=== PATIENT | male | born 1955 | race Caucasian/White ===

== ENCOUNTER 2016-12-17 14:55 | Emergency (ER) | payer MEDICARE ==
--- NOTE | 2016-12-17 15:20 | ER Document Report ---
ED Medical Screen (RME) - General Stated Complaint: LEFT RIB PAIN Mode of Arrival: Wheelchair Information source: Patient Notes: Patient presents to the emergency department as complaints of left-sided rib pain. Reports dizziness for 4 days. Reports yesterday he fell and hit his left ribs. Reports blacked out briefly. History of COPD is on home O2. I have greeted and performed a rapid initial assessment of this patient. A comprehensive ED assessment and evaluation of the patient, analysis of test results and completion of the medical decision making process will be conducted by additional ED providers. - Related Data Allergies/Adverse Reactions: No Known Allergies Allergy (Unverified 12/17/16 15:18) Physical Exam - Vital signs Vitals: Temp Pulse Resp BP Pulse Ox 98.2 F 140 H 20 111/74 91 L 12/17/16 15:13 12/17/16 15:13 12/17/16 15:13 12/17/16 15:13 12/17/16 15:13 Course - Vital Signs Vital signs: Temp Pulse Resp BP Pulse Ox 98.2 F 140 H 20 111/74 91 L 12/17/16 15:13 12/17/16 15:13 12/17/16 15:13 12/17/16 15:13 12/17/16 15:13
[2016-12-17] MEDS ORDERED: MAGNESIUM SULFATE/D5W 1 GM/100 ML RTUPB IV ONE (15:41)
[2016-12-17] MEDS ORDERED: MORPHINE SULFATE 10 MG/ML INJ ONE (15:45)
[2016-12-17] MEDS ORDERED: ONDANSETRON HCL INJ/PF 4 MG/2 ML SDV ONE (15:45)
[2016-12-17 15:55] LABS: ABSOLUTE BASOPHILS # (AUTO) 0.1 10^3/uL (0.0-0.2); ABSOLUTE LYMPHOCYTES (AUTO) 0.9 10^3/uL (0.5-4.7); ABSOLUTE MONOCYTES (AUTO) 0.8 10^3/uL (0.1-1.4); ABSOLUTE NEUT (AUTO) 11.7 10^3/uL (1.7-8.2); BASOPHILS % (AUTO) 0.6 % (0-2); EOSINOPHILS % (AUTO) 0.1 % (0-6); HEMATOCRIT 38.2 % (37.9-51.0); HEMOGLOBIN 13.4 g/dL (13.5-17.0); LYMPHOCYTES % (AUTO) 6.4 % (13-45); MEAN CORPUSCULAR HEMOGLOBIN 30.7 pg (27.0-33.4); MEAN CORPUSCULAR HGB CONC 35.1 g/dL (32.0-36.0); MEAN CORPUSCULAR VOLUME 87 fl (80-97); MONOCYTES % (AUTO) 5.7 % (3-13); RED BLOOD COUNT 4.37 10^6/uL (4.35-5.55); RED CELL DISTRIBUTION WIDTH 14.8 % (11.5-14.0); SEGMENTED NEUTROPHILS % (AUTO) 87.2 % (42-78); WHITE BLOOD COUNT 13.4 10^3/uL (4.0-10.5)
[2016-12-17] MEDS ORDERED: MORPHINE SULFATE 10 MG/ML INJ IV ONE (15:56)
[2016-12-17] MEDS ORDERED: ONDANSETRON HCL INJ/PF 4 MG/2 ML SDV IV ONE (15:56)
[2016-12-17] MEDS ORDERED: NORMAL SALINE 1000 ML 1,000 ML IV PRN ×2 (15:57→17:49)
[2016-12-17] MEDS ORDERED: MAGNESIUM SULFATE/D5W 100 ML IV ONE ×2 (15:57→17:45)
--- NOTE | 2016-12-17 16:00 | ER Document Report ---
ED General - General Chief Complaint: Rib Pain Stated Complaint: LEFT RIB PAIN Time seen by provider: 15:57 Mode of Arrival: Wheelchair Information source: Patient Notes: This is a 61-year-old man who recently moved from [place]. He reports a history of COPD (3 L oxygen at home), bipolar affective disorder and a remote history of lung cancer (right lobectomy in the ) and lymphoma (status post chemotherapy 15 years ago). The patient states she's been dizzy for 4 days. He states he did pass out 2 days ago and he fell and hit his head and left ribs. He presents today because of left rib pain. He denies any shortness of breath. He denies any exertional discomfort. The patient states that his pain is precipitated by movement of the upper torso. TRAVEL OUTSIDE OF THE [place] IN LAST 30 DAYS: No - HPI Onset: Last week Onset/Duration: Gradual Quality of pain: Dull Severity: Moderate Pain Level: 2 Associated symptoms: Other - Chest wall pain. denies: Chills, Fever, Shortness of breath Exacerbated by: Denies Relieved by: Denies Similar symptoms previously: Yes Recently seen / treated by doctor: No - Related Data Allergies/Adverse Reactions: No Known Allergies Allergy (Unverified 12/17/16 15:18) Past Medical History - General Information source: Patient - Social History Smoking Status: Current Every Day Smoker Cigarette use (# per day): No Chew tobacco use (# tins/day): No Frequency of alcohol use: Heavy Drug Abuse: None Lives with: Friend Family History: Reviewed & Not Pertinent Patient has suicidal ideation: No Patient has homicidal ideation: No - Past Medical History Cardiac Medical History: Reports: None Pulmonary Medical History: Reports: Hx COPD Neurological Medical History: Reports: None Endocrine Medical History: Reports: None Renal/ Medical History: Reports: None. Denies: Hx Peritoneal Dialysis Malignancy Medical History: Reports None GI Medical History: Reports: None Musculoskeltal Medical History: Reports None Skin Medical History: Reports None Psychiatric Medical History: Reports: Hx Bipolar Disorder Traumatic Medical History: Reports: None Infectious Medical History: Reports: None Surgical Hx: Negative - Immunizations Hx Diphtheria, Pertussis, Tetanus Vaccination: No Review of Systems - Review of Systems Constitutional: denies: Chills, Fever EENT: No symptoms reported Cardiovascular: Lightheaded. denies: Chest pain, Palpitations, Heart racing, Orthopnea Respiratory: denies: Cough, Hemoptysis, Short of breath Gastrointestinal: No symptoms reported Genitourinary: No symptoms reported Male Genitourinary: No symptoms reported Musculoskeletal: See HPI Skin: No symptoms reported Hematologic/Lymphatic: No symptoms reported Neurological/Psychological: No symptoms reported Physical Exam - Vital signs Vitals: Temp Pulse Resp BP Pulse Ox 98.2 F 140 H 20 111/74 91 L 12/17/16 15:13 12/17/16 15:13 12/17/16 15:13 12/17/16 15:13 12/17/16 15:13 Notes: Physical exam: GENERAL: 61-year-old man, thin, alert and oriented 3, no acute distress. The patient appears relatively well. HEAD: Normocephalic. Contusion over the left eyebrow. EYES: Pupils equal round and reactive to light, extraocular movements intact, sclera anicteric, conjunctiva are normal. ENT: TMs normal, nares patent, oropharynx clear without exudates. Moist mucous membranes. NECK: Normal range of motion, supple without lymphadenopathy or JVD. LUNGS: Breath sounds clear to auscultation bilaterally and equal. No wheezes rales or rhonchi. HEART: Tachycardic without murmurs, rubs or gallops. Chest wall: Left lateral rib tenderness midaxillary line at the level of the nipple. No crepitus. ABDOMEN: Soft, normoactive bowel sounds. No tenderness to palpation. No guarding, no rebound. No masses appreciated. EXTREMITIES: Normal range of motion, no pitting or edema. No clubbing or cyanosis. He does have ecchymoses over the left elbow. There is mild tenderness with range of motion. NEUROLOGICAL: Cranial nerves II through XII grossly intact. Normal speech, normal gait. PSYCH: Normal mood, normal affect. SKIN: Ecchymoses over the left elbow as noted above. He does have small contusion over the left eyebrow. Course - Re-evaluation Re-evalutation: 12/17/16 19:59 The patient's issues were as follows: Left rib pain after fall last week: On exam he has some left chest wall tenderness to palpation. Chest x-ray revealed old rib fracture on the right. There is no new rib fractures. He has a rib contusion secondary to fall. Tachycardia: Patient states he has had an irregular heart rate in the past. Initial EKG showed atrial fibrillation. The patient was found to be hypomagnesemic and got IV magnesium IV fluids. He was given some IV Ativan while in the ER. On repeat examination, the patient was in sinus tachycardia on telemetry at the bedside. Thyroid studies were tested and found to be normal. CTA of the chest was performed to rule out pulmonary emboli (no pulmonary emboli were seen). I think the patient's tachycardia in the setting of electrolyte depletion is precipitated by his alcohol abuse. I've had a long discussion with him with friends at the bedside. The patient would like to go home. I've advised him to follow-up with his primary care doctor and I've given him a copy of his test results as well as CT report. I've advised him to return to the emergency room for any chest pain, concerns it is getting worse. COPD: Patient has a history of COPD. He smokes approximately one half pack per day and is down from 2 packs a day. Currently, he denies any shortness of breath and his lung sounds are clear. Hypomagnesemia: [employer] secondary to alcohol abuse. Patient was given IV magnesium in the ER. Hyponatremia: Patient states he does have a history of hyponatremia. He was treated with IV fluids for some volume depletion. Alcohol abuse: I prescribed the patient some Ativan for withdrawal. I've given him the home number for [facility] and I would like him to follow-up with them this week. 12/17/16 23:37 - Vital Signs Vital signs: Temp Pulse Resp BP Pulse Ox 98.2 F 140 H 23 H 141/98 H 95 12/17/16 15:13 12/17/16 15:13 12/17/16 20:40 12/17/16 20:40 12/17/16 20:40 - Laboratory Result Diagrams: 12/17/16 15:37 12/17/16 15:37 Laboratory results interpreted by me: 12/17/16 12/17/16 12/17/16 15:37 15:37 15:37 WBC 13.4 H Hgb 13.4 L RDW 14.8 H Seg Neutrophils % 87.2 H Lymphocytes % 6.4 L Absolute Neutrophils 11.7 H Sodium 129.7 L Chloride 84 L Carbon Dioxide 32 H Glucose 124 H Magnesium 1.3 L Total Bilirubin 2.7 H Direct Bilirubin 1.5 H AST 192 H Alkaline Phosphatase 262 H Albumin 3.2 L - Diagnostic Test Radiology reviewed: Image reviewed, Reports reviewed Discharge - Discharge Clinical Impression: rib contusion status post fall, tachycardia, hypomagnesemia, alcohol abuse Condition: Stable Disposition: HOME, SELF-CARE Instructions: Rib Contusion ([facility]) Additional Instructions: Recommendations: Ultimately, your fast heartbeat is felt to be due to the alcohol. I want you to seek a detox program: I left the number for [facility] below which is open tomorrow and they could see you as a walk-in. I would like you to go to [facility] tomorrow. In the meantime, I prescribed Ativan which he can take 1 mg every 6-8 hours if you're feeling any symptoms of withdrawal (fast heartbeat, jittery, sweaty): I would not take this medicine if you feel too sleepy. As far as the chest wall tenderness: The CT scans did not show any evidence of fracture. Your symptoms are consistent with contusion to the ribs from the fall. I would not take anything stronger than ibuprofen at this time ( narcotics would interact with the Ativan and your other psychiatric medicines). I want should also follow-up with your primary care physician: Bring a copy of today's CT results and labs with you. Return to the emergency room for worsening pain, any shortness of breath or any concerns he getting worse. [facility] [address] [facility] [place] Crisis Response: [phone] Outpatient services: [phone] Prescriptions: Lorazepam [Ativan 1 mg Tablet] 1 mg PO Q4 PRN #20 tab PRN Reason: Thiamine HCl [Thiamine 100 mg Tablet] 100 mg PO DAILY #30 tablet
[2016-12-17 16:11] LABS: ALANINE AMINOTRANSFERASE 53 U/L (21-72); ALBUMIN 3.2 g/dL (3.5-5.0); ALKALINE PHOSPHATASE 262 U/L (38-126); ANION GAP 14 (5-19); ASPARTATE AMINO TRANSFERASE 192 U/L (17-59); BILIRUBIN,DIRECT 1.5 mg/dL (0.0-0.4); BILIRUBIN,TOTAL 2.7 mg/dL (0.2-1.3); BLOOD UREA NITROGEN 15 mg/dL (7-20); CALCIUM 8.6 mg/dL (8.4-10.2); CARBON DIOXIDE 32 mmol/L (22-30); CHLORIDE 84 mmol/L (98-107); CREATININE RESULT 0.71 mg/dL (0.52-1.25); GLUCOSE 124 mg/dL (75-110); POTASSIUM 3.6 mmol/L (3.6-5.0); SODIUM 129.7 mmol/L (137-145); TOTAL PROTEIN 6.7 g/dL (6.3-8.2)
[2016-12-17 17:20] LABS: THYROID STIMULATING HORMONE 2.6 uIU/mL (0.47-4.68)
[2016-12-17] MEDS ORDERED: LORAZEPAM INJ 2 MG/1 ML VIAL IV ONE (17:51)
--- NOTE | 2016-12-17 20:04 | EKG REPORT ---
SEVERITY:- ABNORMAL ECG - A-FLUTTER W/ PREDOM 2:1 AV BLOCK, A-RATE 283 RIGHT BUNDLE BRANCH BLOCK PROBABLE INFERIOR INFARCT, AGE INDETERMINATE : Confirmed by: Kaleb Jaramillo MD 17-Dec-2016 20:04:03
--- NOTE | 2016-12-17 20:04 | EKG REPORT ---
SEVERITY:- ABNORMAL ECG - A FLUTTER RIGHT BUNDLE BRANCH BLOCK CONSIDER OLD INFERIOR IN : Confirmed by: Kaleb Jaramillo MD 17-Dec-2016 20:03:55
[2016-12-17 21:51] VITALS: BP 141/98
== END 2016-12-17 20:50 | disposition home or self-care (01) ==
LOC: ER 14:55
DX: S20.20XA Contusion of thorax, unspecified, initial encounter (principal); S00.12XA Contusion of left eyelid and periocular area, initial encounter; S50.02XA Contusion of left elbow, initial encounter; R07.81 Pleurodynia; W19.XXXA Unspecified fall, initial encounter; F10.10 Alcohol abuse, uncomplicated; E83.42 Hypomagnesemia; E87.1 Hypo-osmolality and hyponatremia; R00.0 Tachycardia, unspecified; R55 Syncope and collapse; J44.9 Chronic obstructive pulmonary disease, unspecified; F17.200 Nicotine dependence, unspecified, uncomplicated; Z99.81 Dependence on supplemental oxygen; Z85.118 Personal history of other malignant neoplasm of bronchus and lung; Z90.2 Acquired absence of lung [part of]; Z85.72 Personal history of non-Hodgkin lymphomas; Z92.21 Personal history of antineoplastic chemotherapy; Z87.81 Personal history of (healed) traumatic fracture
CPT/HCPCS: 93005 ×2; 99284; 36415; 84439; 83735; 84443; 85025; 80053; 71010; 73070; 70450; 71275; 93010; J2060; J3475

== ENCOUNTER 2016-12-18 15:28 | Inpatient (IN) | payer MEDICARE ==
--- NOTE | 2016-12-18 16:07 | ER Document Report ---
ED Medical Screen (RME) - General Chief Complaint: Pedal Edema Stated Complaint: FEET SWELLING,FAST HEART RATE Mode of Arrival: Ambulatory Information source: Patient Notes: Patient presents to the emergency department with rapid heart rate and feet swelling. Patient was evaluated yesterday in the emergency department with left -sided rib pain. Denies other symptoms such as fever vomiting diarrhea. Patient has history of emphysema. Has home O2 4 L nasal cannula. I have greeted and performed a rapid initial assessment of this patient. A comprehensive ED assessment and evaluation of the patient, analysis of test results and completion of the medical decision making process will be conducted by additional ED providers. TRAVEL OUTSIDE OF THE [place] IN LAST 30 DAYS: No - Related Data Allergies/Adverse Reactions: No Known Allergies Allergy (Unverified 12/17/16 15:18) Past Medical History Pulmonary Medical History: Reports: Hx COPD Renal/ Medical History: Denies: Hx Peritoneal Dialysis Psychiatric Medical History: Reports: Hx Bipolar Disorder - Immunizations Hx Diphtheria, Pertussis, Tetanus Vaccination: No Physical Exam - Vital signs Vitals: Temp Pulse Resp BP Pulse Ox 97.9 F 137 H 20 150/81 H 92 12/18/16 15:30 12/18/16 15:30 12/18/16 15:30 12/18/16 15:30 12/18/16 15:30 Course - Vital Signs Vital signs: Temp Pulse Resp BP Pulse Ox 97.9 F 137 H 20 150/81 H 92 12/18/16 15:30 12/18/16 15:30 12/18/16 15:30 12/18/16 15:30 12/18/16 15:30
[2016-12-18] MEDS ORDERED: DILTIAZEM HCL INJ 25 MG/5 ML VIAL IV ONE ×3 (19:00→21:56)
--- NOTE | 2016-12-18 19:00 | ER Document Report ---
ED General - General Time seen by provider: 18:55 Mode of Arrival: Ambulatory Information source: Patient TRAVEL OUTSIDE OF THE [place] IN LAST 30 DAYS: No - HPI Onset: Other - see HPI note Associated symptoms: Leg swelling Similar symptoms previously: Yes Recently seen / treated by doctor: Yes - ED yesterday, PCP today <FRANCO CASAREZ - Last Filed: 12/18/16 19:13> <MICAH CAI - Last Filed: 12/18/16 22:00> - General Chief Complaint: Feet swelling, Fast heartrate Stated Complaint: FEET SWELLING,FAST HEART RATE Notes: Patient is a 61 year old male presenting to the ED for leg swelling and tachycardia. Patient was seen in the ED last night and told to return 12/19/16 in the morning for a recheck of his symptoms. Patient states he saw his PCP today at [facility] in [place] and was told to go to the ED. Patient has had some dizziness and lightheadedness a three days ago he fell and hit his ribs on the bathtub. Patient still has pain in his ribs and states it hurts to take a deep breath and when he coughs. Patient states his heart has been racing for about 5 days now. Patient smokes, drinks EtOH, and has hypertension and bipolar disorder. Patient has no known allergies. (FRANCO CASAREZ) - Related Data Allergies/Adverse Reactions: No Known Allergies Allergy (Unverified 12/17/16 15:18) Past Medical History - General Information source: Patient - Social History Smoking Status: Current Every Day Smoker Cigarette use (# per day): Yes - 1/2 ppd Chew tobacco use (# tins/day): No Frequency of alcohol use: 2 beers per day Drug Abuse: None Family History: None - Past Medical History Cardiac Medical History: Reports: Hx Hypertension Pulmonary Medical History: Reports: Hx COPD Malignancy Medical History: Reports Hx Lung Cancer, Reports Hx Lymphoma Psychiatric Medical History: Reports: Hx Bipolar Disorder Past Surgical History: Reports: Hx Orthopedic Surgery - arthroscopic knee surgery right and left, Other - partial right lung removal-lung cancer - Immunizations Hx Diphtheria, Pertussis, Tetanus Vaccination: No <FRANCO CASAREZ - Last Filed: 12/18/16 19:13> Review of Systems - Review of Systems Constitutional: No symptoms reported EENT: No symptoms reported Cardiovascular: See HPI, Heart racing Respiratory: No symptoms reported Gastrointestinal: No symptoms reported Genitourinary: No symptoms reported Male Genitourinary: No symptoms reported Musculoskeletal: See HPI, Ankle swelling Skin: No symptoms reported Hematologic/Lymphatic: No symptoms reported Neurological/Psychological: No symptoms reported -: Yes All other systems reviewed and negative <FRANCO CASAREZ - Last Filed: 12/18/16 19:13> Physical Exam - Vital signs Interpretation: Hypertensive, Tachycardic - General General appearance: Appears well, Alert - HEENT Head: Normocephalic, Atraumatic Eyes: Normal Pupils: PERRL Mucous membranes: Moist - Respiratory Respiratory status: No respiratory distress Chest status: Tender - tenderness to the left ribs Breath sounds: Rhonchi, Wheezing Chest palpation: Normal - Cardiovascular Rhythm: Regular, Tachycardia Heart sounds: Normal auscultation Murmur: No - Abdominal Inspection: Normal Distension: No distension Bowel sounds: Normal Tenderness: Nontender Organomegaly: No organomegaly - Back Back: Normal, Nontender - Extremities General upper extremity: Normal inspection, Normal ROM, Normal strength General lower extremity: Normal inspection, Edema - 1-2+ edema to the ankles and feet bilaterally, Normal ROM, Normal strength - Neurological Neuro grossly intact: Yes Cognition: Normal Orientation: AAOx4 [place] Coma Scale Eye Opening: Spontaneous [place] Coma Scale Verbal: Oriented [place] Coma Scale Motor: Obeys Commands [place] Coma Scale Total: 15 Speech: Normal Sensory: Normal - Psychological Associated symptoms: Normal affect, Normal mood - Skin Skin Temperature: Warm Skin Moisture: Dry <FRANCO CASAREZ - Last Filed: 12/18/16 19:13> Course - Laboratory Result Diagrams: 12/18/16 18:55 12/18/16 18:55 <FRANCO CASAREZ - Last Filed: 12/18/16 19:13> - Laboratory Result Diagrams: 12/18/16 18:55 12/18/16 18:55 - EKG Interpretation by Ct EKG shows normal: [place], Intervals, ST-T Waves. abnormal: QRS Complexes Rate: Tachycardia - 149 Rhythm: A.Flutter, PVC's [place]/QRS: RBBB When compared to previous EKG there are: No significant change - Consults Dr. Mena Time consulted: 21:55 Consulted provider: will come to ER <MICAH CAI - Last Filed: 12/18/16 22:00> - Vital Signs Vital signs: Temp Pulse Resp BP Pulse Ox 97.9 F 137 H 20 127/96 H 98 12/18/16 15:30 12/18/16 15:30 12/18/16 20:21 12/18/16 20:21 12/18/16 20:21 - Laboratory Laboratory results interpreted by me: 12/18/16 12/18/16 12/18/16 18:55 18:55 18:55 RBC 3.73 L Hgb 11.5 L Hct 33.1 L RDW 15.0 H Seg Neutrophils % 85.0 H Lymphocytes % 9.7 L Sodium 132.6 L Chloride 88 L Carbon Dioxide 38 H Glucose 120 H Total Bilirubin 1.8 H Direct Bilirubin 0.8 H AST 130 H Alkaline Phosphatase 217 H Creatine Kinase 174 H Albumin 3.1 L Critical Care Note - Critical Care Note Total time excluding time spent on procedures (mins): 30 <MICAH CAI - Last Filed: 12/18/16 22:00> Discharge <FRANCO CASAREZ - Last Filed: 12/18/16 19:13> - Discharge Admitting Provider: Hospitalist Unit Admitted: [facility] <MICAH CAI - Last Filed: 12/18/16 22:00> - Discharge Clinical Impression: Atrial flutter with rapid ventricular response Condition: Stable Disposition: ADMITTED INPATIENT Scribe Documentation - Scribe Written by Scribe:: Franco Casarez 12/18/16 19:15 acting as scribe for :: Guevara <FRANCO CASAREZ - Last Filed: 12/18/16 19:13>
[2016-12-18 19:09] LABS: ADD ON TESTING BLD IN LAB ACKNOWLEDGE
[2016-12-18 19:14] LABS: ABSOLUTE EOSINOPHILS # (AUTO) 0.1 10^3/uL (0.0-0.6); ABSOLUTE LYMPHOCYTES (AUTO) 0.8 10^3/uL (0.5-4.7); ABSOLUTE MONOCYTES (AUTO) 0.3 10^3/uL (0.1-1.4); ABSOLUTE NEUT (AUTO) 6.7 10^3/uL (1.7-8.2); BASOPHILS % (AUTO) 0.1 % (0-2); EOSINOPHILS % (AUTO) 0.9 % (0-6); HEMATOCRIT 33.1 % (37.9-51.0); HEMOGLOBIN 11.5 g/dL (13.5-17.0); HGB HCT DIFFERENCE 1.4; LYMPHOCYTES % (AUTO) 9.7 % (13-45); MEAN CORPUSCULAR HEMOGLOBIN 30.7 pg (27.0-33.4); MEAN CORPUSCULAR HGB CONC 34.7 g/dL (32.0-36.0); MEAN CORPUSCULAR VOLUME 89 fl (80-97); MONOCYTES % (AUTO) 4.3 % (3-13); RED BLOOD COUNT 3.73 10^6/uL (4.35-5.55); WHITE BLOOD COUNT 7.9 10^3/uL (4.0-10.5)
[2016-12-18 19:41] LABS: ALANINE AMINOTRANSFERASE 47 U/L (21-72); ALBUMIN 3.1 g/dL (3.5-5.0); ALKALINE PHOSPHATASE 217 U/L (38-126); ANION GAP 7 (5-19); ASPARTATE AMINO TRANSFERASE 130 U/L (17-59); BILIRUBIN,DIRECT 0.8 mg/dL (0.0-0.4); BILIRUBIN,TOTAL 1.8 mg/dL (0.2-1.3); BLOOD UREA NITROGEN 10 mg/dL (7-20); CALCIUM 8.7 mg/dL (8.4-10.2); CARBON DIOXIDE 38 mmol/L (22-30); CHLORIDE 88 mmol/L (98-107); CREATININE RESULT 0.53 mg/dL (0.52-1.25); GLUCOSE 120 mg/dL (75-110); POTASSIUM 3.9 mmol/L (3.6-5.0); SODIUM 132.6 mmol/L (137-145); TOTAL PROTEIN 6.7 g/dL (6.3-8.2)
[2016-12-18 19:42] LABS: CREATINE KINASE 174 U/L (55-170); MAGNESIUM 1.6 mg/dL (1.6-2.3)
[2016-12-18] MEDS ORDERED: MORPHINE SULFATE 10 MG/ML INJ IV ONE (20:22)
[2016-12-18] MEDS ORDERED: ONDANSETRON HCL INJ/PF 4 MG/2 ML SDV IV ONE (20:22)
[2016-12-18] MEDS ORDERED: DILTIAZEM HCL/D5W 125 ML IV PRN (20:51)
[2016-12-18] MEDS ORDERED: MAGNESIUM SULFATE INJ 8 MEQ/2 ML IV ONE (21:57)
[2016-12-18] MEDS ORDERED: MAGNESIUM SULFATE/D5W 1 GM/100 ML RTUPB IV ONE (23:31)
--- NOTE | 2016-12-19 00:19 | EKG REPORT ---
SEVERITY:- ABNORMAL ECG - A FLUTTER WITH 2:1 CONDUCTION VENTRICULAR PREMATURE COMPLEX VILMA, CONSIDER BIATRIAL ABNORMALITIES RIGHT BUNDLE BRANCH BLOCK : Confirmed by: Roberto Gomez 19-Dec-2016 00:18:58
--- NOTE | 2016-12-19 00:19 | EKG REPORT ---
SEVERITY:- ABNORMAL ECG - A-FLUTTER/FIBRILLATION W/ 2:1 CONDUCTION RIGHT BUNDLE BRANCH BLOCK : Confirmed by: Roberto Gomez 19-Dec-2016 00:18:24
[2016-12-19] MEDS ORDERED: NORMAL SALINE 1000 ML 2,000 ML IV ONE (00:25)
[2016-12-19] MEDS ORDERED: LORAZEPAM 1 MG TABLET PO PRN (00:26)
[2016-12-19] MEDS ORDERED: DILTIAZEM HCL/D5W 125 MG/125 ML RTUINJ IV PRN (00:36)
[2016-12-19] MEDS ORDERED: NICOTINE 14 MG/24 HR PATCH.TD24 TD PRN ×2 (00:36→02:36)
[2016-12-19] MEDS ORDERED: IPRATROPIUM/ALBUTEROL 0.5-2.5 MG/3 ML AMPUL NEB PRN (00:40)
[2016-12-19] MEDS ORDERED: THIAMINE HCL 100 MG TABLET PO ONE (01:00)
[2016-12-19] MEDS ORDERED: MAGNESIUM HYDROXIDE SUSP 30 ML UDCUP PO PRN (01:02)
[2016-12-19] MEDS ORDERED: DILTIAZEM HCL INJ 25 MG/5 ML VIAL IV ONE (01:15)
--- NOTE | 2016-12-19 01:27 | PDOC H&P ---
History of Present Illness Admission Date/PCP: 12/18/16 22:23 PCP Med [facility] urgent [facility] [place] Patient complains of: rapid heart rate History of Present Illness: CHITRA LUA is a 61 year old male with underlying home O2 dependent COPD, 3 L oxygen nasal cannula 16/04, along with easy bruising, history of hepatitis C, status post 1 year treatment with interferon, bipolar disorder, mild anxiety and depression, without suicidal or homicidal ideation, with no known cardiac disease other than elevated blood pressure without diagnosis of hypertension, who presents to the emergency room for the second time in approximate 24 hours, this time primarily for tachycardia. Was seen in the emergency room on the complaining of left rib pain after he had fallen against the side of his tub. Was noted to be tachycardic at that time, felt secondary to electrolyte abnormalities. Negative CT angiogram of the chest the chest for pulmonary emboli. EKG revealed tachycardia, eventually interpreted by inside sales trainer as atrial flutter with rapid ventricular response. Was discharged home with instructions to follow-up in the emergency room in 48 hours. Returns today complaining of persistent tachycardia, along with swelling of his right ankle. He actually states he has had intermittent swelling of his ankles for quite some time now. Was noted to be once again in atrial flutter with rapid ventricular response, pulse in the 140-150 range. Has received Cardizem boluses and drip. Currently resting quietly. Only complaining of left lateral chest wall pain where he fell against the tub. No nausea vomiting fever chills, or dysuria. Chronic intermittent diarrhea. No previous myocardial infarction or congestive heart failure. No history of pulmonary embolus or DVT. No chronic pulmonary disease other than obstructive sleep apnea, with patient being noncompliant with the mask due to discomfort. Has had a flu vaccination. No Pneumovax. Denies underlying thyroid disease. Down to a half pack-a-day smoker. 2 "tall boy" beers per day. Denies illicit drug use. Patient has been discussed with emergency room physician who evaluated the patient. . Laboratory results are listed in [facility] and are reviewed. X-ray summary results are listed below, with full report(s) reviewed. . EKG's reviewed. Social history/personal habits: . 2 children. On disability due to mental health problems. Personal habits as noted above. Allergies/adverse reactions NKDA. Home medications Home medications initially autopopulated into [facility] may not accurately reflect patient's true medications, dosages, and/or frequencies. Unfortunately, patient uncertain of medications/dosages/frequencies. REVIEW OF SYSTEMS: Constitutional: No fever or chills. Eyes: Wears glasses. ENT: No swallowing problems or complaints. No hearing problems or complaints. Pulmonary: No current complaints. Cardiovascular: See history and present illness. Gastrointestinal: See history and present illness. Skin: No current complaints, including rashes. Hematologic: Easy bruising. Neurologic: No current complaints, including numbness or tingling. Musculoskeletal: No current complaints, including painful joints. Psychiatric: Anxiety depression; denies suicidal or homicidal ideation. Endocrine: No current complaints, including polyuria. Genitourinary: No current complaints, including dysuria. PHYSICAL EXAMINATION: 5 feet 10 inches tall. 55.9 kg. BMI 17.7 kg/m. Blood pressure 139/86. Pulse 147 and slightly irregular. Respirations are 16 and unlabored. 96% saturation on room air. Temperature 97.9. well-developed though perhaps somewhat chronically ill-appearing male who nevertheless appears a bit younger than his stated age. Pleasant awake alert and cooperative. No obvious distress other than somewhat anxious. No agitation. Skin is warm and dry. No grossly obvious evidence of rash in areas of skin examined. No subcutaneous nodules palpated. ENT: Hearing grossly normal to normal conversation. Tongue midline on protrusion pink and slightly tacky. Eyes: No scleral icterus. Pupils equal and reactive to light at 4 mm. [place] conjunctivae. No Raccoon eyes. Neck is supple and nontender to gentle active range of motion and palpation. Midline trachea. No palpable thyroid nodule mass enlargement or tenderness. Lymphatic: No palpable cervical or clavicular nodes. Neck and lymphatic exams limited by patient body habitus. Psychiatric: Reasonable insight into acute and chronic medical issues. Oriented to time location and why here. Lungs: Auscultation reveals clear and equal breath sounds bilaterally. No use of accessory respiratory muscles. Cardiovascular: Heart irregular rate and rhythm, without gallop murmur or rub. No carotid or abdominal aortic bruits. No ankle or pedal edema. Faintly palpable dorsalis pedis pulses. Abdomen: soft, nontender with positive bowel sounds. No upper abdominal mass or organomegaly palpated.. Extremities: Feet are warm and dry. No calf tenderness to compression. No grossly obvious visual evidence of calf swelling. Gentle manipulation of lower extremities fails to reveal any obvious evidence of injury or instability to knees hips or ankles. Neurologic: Moves upper extremities grossly normally. Patellar reflexes absent. Absent Babinski. Light touch is intact at feet. Dorsiflexion and plantarflexion of feet 5 / 5 and symmetric. Past Medical History Cardiac Medical History: Reports: Hypertension Denies: Atrial Fibrillation, Congestive Heart Failure, DVT, Myocardial Infarction, Hyperlipidema, Pulmonary Embolism Pulmonary Medical History: Reports: Chronic Obstructive Pulmonary Disease (COPD) , Sleep Apnea - Noncompliant with masked due to discomfort. EENT Medical History: Reports: Eyes - Glasses Denies: Ears, Throat Neurological Medical History: Denies: Hemorrhagic CVA, Ischemic CVA, Seizures Endocrine Medical History: Denies: Diabetes Mellitus Type 1, Diabetes Mellitus Type 2, Hyperthyroidism, Hypothyroidism Renal/ Medical History: Reports: None Malignancy Medical History: Reports: Lung Cancer - Partial right lobectomy ; no chemotherapy or radiation therapy needed., Lymphoma - Chemotherapy 15 years ago. GI Medical History: Reports: Hepatitis - Hepatitis C, treated for one year with interferon. Denies: Cirrhosis, Gastroesophageal Reflux Disease, Peptic Ulcer Disease Musculoskeltal Medical History: Reports: None Skin Medical History: Reports: None Psychiatric Medical History: Reports: Alcohol Dependency - 2 tall boy beers a day., Bipolar Disorder, Depression, General Anxiety Disorder, Tobacco Dependency Denies: Substance Abuse Hematology: Reports: Other - Easy bruising Infectious Medical History: Reports: Hepatitis C Denies: Hepatitis B Past Surgical History Past Surgical History: Reports: Orthopedic Surgery - arthroscopic knee surgery right and left, Other - partial right lung removal-lung cancer Social History Information Source: Patient, Emergency Med Personnel, [facility] Records Smoking Status: Current Every Day Smoker Frequency of Alcohol Use: Social - 2 tall boy beers a day. Drugs: None - Advance Directive Resuscitation Status: Full Code Surrogate healthcare decision maker:: Sister Joann Epstein. Family History Family History: None Parental Family History Reviewed: Yes Children Family History Reviewed: Yes Sibling(s) Family History Reviewed.: Yes Medication/Allergy Home Medications: RX: Albuterol Sulfate [Proair Respiclick] 1 puff IH Q6HP PRN 12/19/16 RX: Baclofen [Baclofen 10 mg Tablet] 10 mg PO QID 12/19/16 RX: Buspirone HCl [Buspar 5 mg Tablet] 1 tab PO TID 12/19/16 RX: Fluoxetine HCl [Prozac] 40 mg PO DAILY 12/19/16 RX: Lamotrigine [Lamictal] 200 mg PO Q12 12/19/16 RX: Lorazepam [Ativan 1 mg Tablet] 1 mg PO Q4 PRN 12/19/16 RX: Olanzapine [Zyprexa 5 mg Tablet] 10 mg PO QHS 12/19/16 RX: Umeclidinium Ninole [Incruse Ellipta] 1 puff IH DAILY 12/19/16 Diltiazem HCl [Diltiazem 24Hr Cd] 180 mg PO DAILY #30 cap.er.24h 12/22/16 RX: Apixaban [Eliquis 2.5 mg Tablet] 2.5 mg PO BID #60 tablet 12/22/16 RX: Multivitamin [Tab-A-Xavier (Multiple Vitamin) Tablet] 1 tab PO DAILY tablet 12/22/16 RX: Nicotine [Nicoderm 14 mg/24 Hr Transdermal Patch] 1 each TD DAILYP PRN patch.td24 12/22/16 RX: Prednisone [Deltasone 20 mg Tablet] 10 mg PO DAILY #21 tablet 12/22/16 RX: Thiamine HCl [Thiamine 100 mg Tablet] 100 mg PO DAILY tablet 12/22/16 Allergies/Adverse Reactions: No Known Allergies Allergy (Unverified 12/17/16 15:18) Physical Exam Vital Signs: Temp Pulse Resp BP Pulse Ox 97.9 F 137 H 14 128/108 H 95 12/18/16 15:30 12/18/16 15:30 12/19/16 00:21 12/19/16 00:21 12/19/16 00:21 Assessment & Plan - Diagnosis (1) DOYLE (obstructive sleep apnea) Is this a current diagnosis for this admission?: YesPlan: CPAP. (2) Atrial flutter with rapid ventricular response Is this a current diagnosis for this admission?: YesPlan: IV fluid and Cardizem bolus, along with Cardizem drip. May need amiodarone drip if rate is not adequately controlled with Cardizem. Serial troponins. Lipid panel. Echocardiogram. Cardiology consult. Has received a gram of magnesium by ER physician. I have strongly encouraged patient not to get out of bed without notifying staff , to avoid a fall with injury. Knee high SCDs for DVT prophylaxis, [along with subcutaneous Lovenox . Impression and plans were discussed with patient, who concurs. Time spent in evaluation and management of patient: 61 minutes. (4) New onset atrial flutter Is this a current diagnosis for this admission?: Yes (5) Alcohol use Is this a current diagnosis for this admission?: YesPlan: Daily multivitamin, thiamine, and folic acid. When necessary oral Ativan. Observe for alcohol withdrawal symptoms; currently not present. (6) Tobacco dependency Is this a current diagnosis for this admission?: YesPlan: When necessary nicotine patch. (7) Elevated LFTs Is this a current diagnosis for this admission?: YesPlan: Likely due to combination of alcohol use and hepatitis C. - Inpatient Certification Based on my medical assessment, after consideration of the patient's comorbidities, presenting symptoms, or acuity I expect that the services needed warrant INPATIENT care.: Yes I certify that my determination is in accordance with my understanding of Medicare's requirements for reasonable and necessary INPATIENT services [42 CFR 412.3e].: Yes Medical Necessity: Need Close Monitoring Due to Risk of Patient Decompensation, Need For IV Fluids, Need For Continuous Telemetry Monitoring, Risk of Diagnosis Which Will Require Inpatient Eval/Care/Monitoring Post Hospital Care: D/C or Transfer Summary
[2016-12-19 01:36] LABS: PROTHROMBIN TIME 11.5 SEC (11.4-15.4)
[2016-12-19 01:37] LABS: PARTIAL THROMBOPLASTIN TIME 30.6 SEC (23.5-35.8)
[2016-12-19 02:33] LABS: APPEARANCE,URINE CLEAR; BILIRUBIN,URINE NEGATIVE (NEGATIVE); GLUCOSE, URINE NEGATIVE (NEGATIVE); KETONES,URINE NEGATIVE (NEGATIVE); LEUKOCYTE ESTERASE,URINE NEGATIVE (NEGATIVE); NITRITE,URINE NEGATIVE (NEGATIVE); PROTEIN,URINE NEGATIVE (NEGATIVE); URINE SPECIFIC GRAVITY 1.003; UROBILINOGEN,URINE NEGATIVE mg/dL (<2.0)
[2016-12-19 03:09] LABS: URINE BARBITURATES SCREEN NEGATIVE; URINE METHADONE SCREEN NEGATIVE; URINE OPIATES LOW UNCONFIRMED POSITIVE; URINE PHENCYCLIDINE SCREEN NEGATIVE
[2016-12-19] MEDS: OXYCODONE HCL IR 5 MG TABLET PO PRN (03:40)
[2016-12-19] MEDS: ACETAMINOPHEN 325 MG TABLET PO PRN ×2 (06:09→21:24)
[2016-12-19] MEDS: DILTIAZEM HCL/D5W 125 MG/125 ML RTUINJ IV PRN ×3 (06:37→21:11)
[2016-12-19 07:27] LABS: ABSOLUTE EOSINOPHILS # (AUTO) 0.2 10^3/uL (0.0-0.6); ABSOLUTE LYMPHOCYTES (AUTO) 0.5 10^3/uL (0.5-4.7); ABSOLUTE MONOCYTES (AUTO) 0.5 10^3/uL (0.1-1.4); BASOPHILS % (AUTO) 0.4 % (0-2); EOSINOPHILS % (AUTO) 2.9 % (0-6); HEMATOCRIT 28.8 % (37.9-51.0); HEMOGLOBIN 9.9 g/dL (13.5-17.0); HGB HCT DIFFERENCE 0.9; LYMPHOCYTES % (AUTO) 8.2 % (13-45); MEAN CORPUSCULAR HEMOGLOBIN 30.8 pg (27.0-33.4); MEAN CORPUSCULAR HGB CONC 34.4 g/dL (32.0-36.0); MEAN CORPUSCULAR VOLUME 89 fl (80-97); MONOCYTES % (AUTO) 8.4 % (3-13); RED BLOOD COUNT 3.22 10^6/uL (4.35-5.55); RED CELL DISTRIBUTION WIDTH 14.8 % (11.5-14.0); SEGMENTED NEUTROPHILS % (AUTO) 80.1 % (42-78); WHITE BLOOD COUNT 6.2 10^3/uL (4.0-10.5)
[2016-12-19 07:41] LABS: ANION GAP 7 (5-19); BLOOD UREA NITROGEN 6 mg/dL (7-20); CALCIUM 7.7 mg/dL (8.4-10.2); CARBON DIOXIDE 33 mmol/L (22-30); CHLORIDE 95 mmol/L (98-107); CHOLESTEROL 134.45 mg/dL (0-200); CREATININE RESULT 0.48 mg/dL (0.52-1.25); Direct HDL 46 mg/dL (>40); GLUCOSE 88 mg/dL (75-110); POTASSIUM 3.4 mmol/L (3.6-5.0); SODIUM 134.9 mmol/L (137-145); TRIGLYCERIDES 63 mg/dL (<150)
[2016-12-19 07:52] LABS: DIRECT LDL 67 mg/dL (<100)
[2016-12-19] MEDS ORDERED: ENOXAPARIN SODIUM INJ 40 MG/0.4 ML DISP.SYRIN SUBCUT SCH (08:00)
[2016-12-19] MEDS: MULTIVITAMIN TABLET PO SCH (09:15)
[2016-12-19] MEDS: THIAMINE HCL 100 MG TABLET PO SCH (09:16)
[2016-12-19] MEDS: FOLIC ACID 1 MG TABLET PO SCH (09:16)
[2016-12-19] MEDS ORDERED: METOPROLOL TARTRATE PF/INJ 5 MG/5 ML SDV IV PRN (09:36)
--- NOTE | 2016-12-19 10:33 | PDOC PROGRESS REPORT ---
Subjective Progress Note for:: 12/19/16 Subjective:: Plans of some shortness of breath. Physical Exam Vital Signs: Temp Pulse Resp BP Pulse Ox 97.6 F 101 H 16 139/69 H 90 L 12/19/16 07:26 12/19/16 08:57 12/19/16 08:57 12/19/16 07:26 12/19/16 08:57 Intake & Output 12/18/16 12/19/16 12/20/16 06:59 06:59 06:59 Intake Total 60 Output Total 600 Balance -540 General appearance: PRESENT: no acute distress Eye exam: PRESENT: conjunctiva pink. ABSENT: scleral icterus Mouth exam: PRESENT: moist, tongue midline Neck exam: ABSENT: JVD Respiratory exam: PRESENT: clear to auscultation ritchie. ABSENT: rales, rhonchi, wheezes Cardiovascular exam: PRESENT: tachycardia. ABSENT: diastolic murmur, rubs, systolic murmur Pulses: PRESENT: normal dorsalis pedis pul GI/Abdominal exam: PRESENT: normal bowel sounds, soft. ABSENT: distended, guarding, mass, organolmegaly, rebound, tenderness Extremities exam: ABSENT: calf tenderness, clubbing, pedal edema Neurological exam: PRESENT: alert, awake, oriented to person, oriented to place , oriented to time, oriented to situation, CN II-XII grossly intact. ABSENT: motor sensory deficit Psychiatric exam: PRESENT: appropriate affect Skin exam: PRESENT: dry, intact, warm. ABSENT: cyanosis, rash Results Laboratory Results: 12/19/16 06:59 12/19/16 06:59 12/19/16 12/19/16 12/19/16 01:55 06:59 06:59 WBC 6.2 RBC 3.22 L Hgb 9.9 L Hct 28.8 L MCV 89 MCH 30.8 MCHC 34.4 RDW 14.8 H Plt Count 156 Seg Neutrophils % 80.1 H Lymphocytes % 8.2 L Monocytes % 8.4 Eosinophils % 2.9 Basophils % 0.4 Absolute Neutrophils 5.0 Absolute Lymphocytes 0.5 Absolute Monocytes 0.5 Absolute Eosinophils 0.2 Absolute Basophils 0.0 Sodium 134.9 L Potassium 3.4 L Chloride 95 L Carbon Dioxide 33 H Anion Gap 7 BUN 6 L Creatinine 0.48 L Est GFR ( Amer) > 60 Est GFR (Non-Af Amer) > 60 Glucose 88 Calcium 7.7 L Triglycerides 63 Cholesterol 134.45 LDL Cholesterol Direct 67 VLDL Cholesterol 13.0 HDL Cholesterol 46 Urine Color YELLOW Urine Appearance CLEAR Urine pH 6.0 Ur Specific [place] 1.003 Urine Protein NEGATIVE Urine Glucose (UA) NEGATIVE Urine Ketones NEGATIVE Urine Blood NEGATIVE Urine Nitrite NEGATIVE Ur Leukocyte Esterase NEGATIVE 12/19/16 12/19/16 01:06 06:59 Troponin I 0.021 0.012 Assessment & Plan - Diagnosis (1) Atrial flutter with rapid ventricular response Is this a current diagnosis for this admission?: YesPlan: The patient continues to have a rapid ventricular rate. At the time my exam his heart rate was 150. We will give IV diltiazem. He is already currently on a diltiazem drip. Cardiology has been consulted. His cardiac enzymes have increased slightly. Patient is to see cardiology. The elevated cardiac enzymes are most likely secondary to the rapid ventricular response. (2) Elevated LFTs Is this a current diagnosis for this admission?: YesPlan: This most likely secondary to his chronic hepatitis C. (3) Left-sided chest wall pain Is this a current diagnosis for this admission?: YesPlan: This appears to be pleuritic in nature however we will give morphine and continue to monitor serial cardiac enzymes. (4) DOYLE (obstructive sleep apnea) Is this a current diagnosis for this admission?: YesPlan: Continue with CPAP daily at bedtime. (5) Hepatitis C Is this a current diagnosis for this admission?: Yes - Time Time Spent with patient: 25-34 minutes - Inpatient Certification Medical Necessity: Need Close Monitoring Due to Risk of Patient Decompensation
[2016-12-19] MEDS: CEFTRIAXONE 1 GM/D5W RTU 1 GM/50 ML RTUPB IV SCH (13:20)
[2016-12-19] MEDS: MORPHINE SULFATE 10 MG/ML INJ IV PRN ×2 (13:21→17:50)
--- NOTE | 2016-12-19 18:59 | XCELERA REPORT ---
[address] [address] Transthoracic Echocardiogram Report Name: CHITRA LUA Age: 61 yrs Gender: Male : 1955 Patient Status: Inpatient Patient Location: 3N\S\301\S\A Study Date: 12/19/2016 08:07 AM Height: 70 in Weight: 123 lb BSA: 1.7 m2 Procedure: A two-dimensional transthoracic echocardiogram with color flow and Doppler was performed. The study was technically difficult with many images being suboptimal in quality. Reason For Study: ATRIAL FLUTTER History: ATRIAL FLUTTER. Ordering Physician: RENY HERNANDEZ Performed By: Elliott Tony Interpretation Summary The left ventricle is normal in size. There is normal left ventricular wall thickness. LV EF is > than 60% Left ventricular systolic function is normal. Except septal motion consistent with conduction abnormality. The right ventricle is mildly dilated. There is mild right ventricular hypertrophy. The left atrial size is normal. There is no evidence of mitral valve prolapse. There is no mitral valve stenosis. There is no aortic valve stenosis There is no LVOT obstruction. There is Aortic Sclerosis with stenosis. No aortic regurgitation is present. There is no tricuspid stenosis. There is a mild amount of tricuspid regurgitation There is mild pulmonary hypertension by echo RVSP is 37 mm of Hg , with a RA mean of 10. There is no pericardial effusion. MMode/2D Measurements \T\ Calculations RVDd: 4.5 cm LVIDd: 4.3 cm FS: 33.6 % Ao root diam: 3.0 cm IVSd: 1.1 cm LVIDs: 2.9 cm EDV(Teich): 85.0 ml LVPWd: 1.1 cm ESV(Teich): 31.7 ml Ao root area: 6.8 cm2 EF(Teich): 62.7 % LA dimension: 2.9 cm LVOT diam: 2.0 cm LVOT area: 3.0 cm2 Doppler Measurements \T\ Calculations MV E max rashaun: MV P1/2t max rashaun: Ao V2 max: LV V1 max P.3 cm/sec 81.0 cm/sec 160.0 cm/sec 2.8 mmHg MV P1/2t: 55.2 msec Ao max PG: LV V1 max: MVA(P1/2t): 4.0 cm2 10.2 mmHg 84.0 cm/sec MV dec slope: SANDY(V,D): 1.6 cm2 429.3 cm/sec2 PA V2 max: TR max rashaun: RAP systole: 108.6 cm/sec 256.5 cm/sec 10.0 mmHg PA max PG: TR max P.6 mmHg 4.7 mmHg RVSP(TR): 36.6 mmHg Left Ventricle The left ventricle is normal in size. There is normal left ventricular wall thickness. LV EF is > than 60%. Left ventricular systolic function is normal. LV diastolic function could not be adequately assessed. Except septal motion consistent with conduction abnormality. The left ventricular wall motion is normal. There is no thrombus. There is no ventricular septal defect visualized. Right Ventricle The right ventricle is mildly dilated. There is mild right ventricular hypertrophy. The right ventricular systolic function is normal. Atria The right atrium is normal. The left atrial size is normal. The interatrial septum is intact with no evidence for an atrial septal defect. Mitral Valve There is no evidence of mitral valve prolapse. There is no vegetation seen on the mitral valve. There is no mitral valve stenosis. There is a trace to mild amount of mitral regurgitation. Aortic Valve The aortic valve is trileaflet. The aortic valve is mildly calcified. The aortic valve opens well. There is no aortic valvular vegetation. There is no aortic valve stenosis. There is no LVOT obstruction. There is Aortic Sclerosis with stenosis. No aortic regurgitation is present. Tricuspid Valve There is no tricuspid stenosis. There is a mild amount of tricuspid regurgitation. There is mild pulmonary hypertension by echo. RVSP is 37 mm of Hg , with a RA mean of 10. Pulmonic Valve There is no pulmonic valvular stenosis. There is no pulmonic valvular regurgitation. Great Vessels The aortic root is normal size. Effusions There is no pericardial effusion. : RNEY HERNANDEZ > Vidya Milian
[2016-12-19] MEDS: ENOXAPARIN SODIUM INJ 60 MG/0.6 ML DISP.SYRIN SUBCUT SCH (21:15)
[2016-12-20] MEDS: MORPHINE SULFATE 10 MG/ML INJ IV PRN ×2 (00:10→08:00)
[2016-12-20] MEDS ORDERED: DIGOXIN INJ 0.5 MG/2 ML AMPULE ONE (01:12)
[2016-12-20] MEDS ORDERED: DIGOXIN INJ 0.5 MG/2 ML AMPULE IV ONE (01:15)
[2016-12-20] MEDS: NORMAL SALINE 1000 ML 1,000 ML IV PRN ×3 (01:22→23:31)
--- NOTE | 2016-12-20 03:13 | CONSULTATION REPORT E ---
Consultation Report NAME: CHITRA LUA : 1955 AGE: 61Y DATE: 12/19/2016 301 A TO: DORIAN JIMÉNEZ M.D. FROM: RENY HERNANDEZ M.D. Requesting Physician REASON FOR CONSULTATION: Atrial fibrillation with rapid ventricular response. HISTORY OF PRESENT ILLNESS: The patient is a 61-year-old male with underlying home oxygen dependent COPD along with a history of hepatitis C status post 1 year treatment with interferon, bipolar disorder, mild anxiety and depression who presented again for the second time since his earlier 12/17/2016 visit to the emergency room for tachycardia. The patient just felt dizzy. He denies any palpitations. He was seen in the emergency room on 12/17/2016 complaining of left chest wall pain after he fell and states that he blacked out for a few seconds. Prior to that, for a few days, the patient had been feeling dizzy. Also, the patient has been having cough with brownish/yellow sputum, but no wheezing. He has some mild sob which is more than his baseline. On 12/17/2016, he was found to be tachycardic and this was thought to be secondary to his alcohol abuse and hypomagnesemia and he was treated, his magnesium was replenished. At that time, his CTA of the chest showed bullous emphysema and bronchiectasis of the lungs without any pulmonary emboli. The patient subsequently was told to come back if the dizziness persisted. The patient again was admitted this time with palpitations and also with pain on the left side of the chest wall where he fell and hit himself. He also complains of swelling of the left ankle. He states that he has intermittent swelling of the right ankle. He was found to be in atrial flutter with rapid ventricular response and right bundle branch block pattern and was placed on Cardizem drip. At present, he denies any shortness of breath. There is no PND or orthopnea. There is no chest pain or discomfort. At present, he has no palpitations, although on admission he had them and since then, the rate is much improved. His right ankle edema has now subsided. He denies a past history of atrial flutter. He says about 2 years ago, he had a syncopal episode briefly and that time, had palpitations, but did not seek any attention. He denies any history of diabetes mellitus or hypertension. He has a history of COPD on O2. He continues to smoke. He has a past history of hepatitis C treated with interferon for about a year. He also states that he has a history of lymphoma. The lymphoma he states was cured 15 years ago and has not had any recurrence. He also has a history of anxiety and depression and bipolar disorder, these are in remission. He denies any history of hypertension, diabetes mellitus. There is no history of TIA or CVA. There is no history of thyroid disease. There is no history of sleep apnea. He does have a history of COPD, but denies any wheezing. No history of asthma. No history of palpitations in the past. History of syncope as mentioned earlier, most likely secondary to atrial fibrillation with rapid ventricular response. He denies any history of congestive heart failure, AZ or angina symptoms. He complains of right ankle edema very now and then, which subsides spontaneously. The patient has a history of mild anxiety and depression, which are both controlled and a history of bipolar disorder in remission. No prior history of myocardial infarction. The patient has a history of obstructive sleep apnea, but does not use his CPAP. He denies any fevers, chills or rigors as mentioned earlier. PAST SURGICAL HISTORY: Positive for: 1. Bilateral arthroscopic knee surgery. 2. Lymph node removed from his neck. 3. Right middle lobectomy for lung cancer. He says his lung cancer has been cured. SOCIAL HISTORY: The patient smokes and he also has a history of EtOH abuse. He drinks 2 "Tall Boy" beers per day. FAMILY HISTORY: Negative for hypertension or diabetes mellitus or coronary artery disease. ALLERGIES: He has no known allergies. MEDICATIONS: 1. Acetaminophen 650 mg p.o. every 8 hours p.r.n. 2. Diltiazem at 15 mg/h infusion. 3. Lovenox 40 mg subcutaneously daily. 4. Folic acid 1 mg p.o. daily. 5. Ceftriaxone 1 g daily. 6. DuoNeb nebulizer treatment every 4 hours p.r.n. 7. Ativan 2 mg p.o. every 4 hours p.r.n. 8. Magnesium hydroxide 30 mL nightly p.r.n. 9. He did get order for 5 mg of metoprolol IV every 6 hours p.r.n. 10. Morphine sulfate 2 mg IV every 4 hours p.r.n. 11. NicoDerm patch 14 mg per day to chest wall daily. 12. Oxycodone 5 mg p.o. every 8 hours p.r.n. 13. Thiamine hydrochloride 100 mg p.o. daily. DISPOSITION: The patient is a FULL CODE. He states he is and he states that his surrogate healthcare decision maker is his friend, Mr. Vitaly Frazier and his . REVIEW OF SYMPTOMS: CONSTITUTIONAL: Denies any fever, chills, or rigors. HEAD: Denies any history of headaches or head injury. EYES: No history of amblyopia or diplopia. No history of amaurosis fugax. EARS: No history of tinnitus. History of recurrent ear infections. NOSE: No history of hay fever. No history of nosebleeds. MOUTH: No history of ulcers in the mouth. No history of bleeding from the gums. THROAT: No history of odynophagia or dysphagia. No history of recurrent sore throats. SKIN: No history of skin rashes. No history of skin lesions. There is no history of psoriasis. No history of yellowish discoloration of the skin. There is no pruritus. NECK: Denies any neck pain. He said he had a lymph node 15 years ago and was diagnosed with lymphoma and was treated with chemotherapy with no recurrence. LUNGS: History of lung cancer status post right middle lobe lobectomy. He states there is no recurrence of lung cancer. He has a history of COPD on home oxygen and recent symptoms suggestive of acute bronchitis. He also has history of sleep apnea and noncompliance with CPAP. No history of pulmonary embolism. No history of hemoptysis. Left chest wall pain due to fall. CARDIAC: History of syncope x2, one a few days ago and one 2 years ago. He did have palpitations on the first syncopal episode and also this episode. History of dizziness present. Now, the patient after his rate has been better controlled has no palpitations. He has no history of congestive heart failure. No history of hypertension. No history of coronary artery disease. Intermittent swelling of right ankle only, but no bilateral pedal edema or leg edema. No history of palpitations at present, but on admission he had palpitations. No history of coronary artery disease. No history of AZ or anginal symptoms. ENDOCRINE: No history of diabetes mellitus. No history of thyroid disease. No history of polydipsia or polyuria. No history of heat or cold intolerance. GASTROINTESTINAL: History of hepatitis C, cured with interferon. No history of fatty food intolerance. No history of GI bleed. He has history of intermittent diarrhea, etiology not known. No history of abdominal pain. No history of jaundice. MUSCULOSKELETAL: Denies any arthritis or collagen vascular disease. RENAL: No history of chronic kidney disease. No symptoms of UTI. No history of hematuria, pyuria or dysuria. CENTRAL NERVOUS SYSTEM: No history of TIA or CVA. No history of seizures, headaches or migraines. PSYCHIATRIC: No history of suicidal ideation. The patient has history of anxiety and depression., well controlled. He also has a history of bipolar disorder which is in remission. He has been disabled due to his bipolar disorder. VASCULAR: No history of DVT. No history of calf or buttock claudication. HEMATOLOGIC: History of lymphoma cured. No history of clotting disorders or bleeding diathesis, but has easy bruisability. PHYSICAL EXAMINATION: GENERAL: The patient is of thin build, but seems to be well nourished, at present in no major distress. VITAL SIGNS: He is afebrile with temperature of 97.6 degrees Fahrenheit, pulse is 102 beats per minute, the monitor shows atrial flutter with right bundle branch block pattern, blood pressure 134/63, respirations 19 per minute, O2 saturation 93%. He is on nasal cannula at 3.5L per minute. HEENT: Head is atraumatic and normocephalic. Eyes; pupils are equal, round, regular, reactive to light and accommodation. Extraocular movements are normal. There is no conjunctival pallor. There is no scleral icterus. Ears; tympanic membranes are intact. External auditory canals are clear. Nose; there is no deviated nasal septum. There is no inflammation of the nasal mucous membranes. Mouth; no ulcers in the mouth. No bleeding from the gums. Throat; there are no exudates in the throat, no redness of the oropharynx. SKIN: There is no petechia or ecchymosis. There are no skin lesions or skin rashes. NECK: Supple. There is no JVD. Carotids are equal. There is no bruit. There is no lymphadenopathy. Trachea is central. There is no goiter. LUNGS: Diminished air entry and prolonged expiration without wheezing, but there are bilateral rhonchi present. There is hyperresonance on percussion. HEART: S1 and S2 are heard. There is no S3 gallop. There is no S4 gallop. There is a systolic murmur at the left sternal border at the apex. There is no rub. ABDOMEN: Soft, nontender. There is no hepatosplenomegaly. Bowel sounds are well heard. There are no tender areas or masses. EXTREMITIES: Femorals are diminished. Leg pulses are diminished. At present, there is no pedal edema. There is no DVT or cellulitis. There is no calf tenderness. CENTRAL NERVOUS SYSTEM: The patient is conscious, awake, alert, oriented x3 with no focal deficits. PSYCHIATRIC: The patient's judgment and insight at present are intact. His affect is normal. ELECTROCARDIOGRAM: The patient's EKG on 12/17/2016 admission shows atrial flutter with rapid ventricular response with right bundle branch block pattern. IMAGING: His CTA findings on 12/17/2016 were as mentioned earlier. LABORATORY: Today, his white count is 6200, hemoglobin 9.9, hematocrit is 28.8, platelet count 156,000. His urine opiate, urine methadone, urine barbiturate screen, urine phencyclidine screen, urine amphetamine screen, urine benzodiazepine screen, urine cocaine screen, urine marijuana screen are all negative. Sodium 134.9, potassium 3.4, chloride 35, CO2 of 33, BUN 6, creatinine 0.48, GFR greater than 60, glucose 88, calcium 7.7. Yesterday, his magnesium on 12/18/2016 was 1.6. CPK and CPK-MBs have been negative x2. Triglycerides 63, LDL cholesterol 67, HDL cholesterol 46. Liver function tests have been abnormal with total bilirubin 1.8, AST 130, alkaline phosphatase 217, albumin 3.1. Total protein 6.7. IMPRESSION: 1. SYNCOPE, SECONDARY TO ATRIAL FLUTTER WITH RAPID VENTRICULAR RESPONSE. 2. ATRIAL FLUTTER WITH RAPID VENTRICULAR RESPONSE. 3. ACUTE BRONCHITIS. 4. O2 DEPENDENT COPD, DOUBT THAT IS AN ACUTE EXACERBATION OF COPD. 5. HISTORY OF HEPATITIS C TREATED WITH INTERFERON AND STATES IT IS NOW CURED. 6. HISTORY OF LYMPHOMA, PATIENT STATES IT IS CURED. 7. HYPOKALEMIA. 8. ABNORMAL LIVER FUNCTION TESTS, THE ETIOLOGY MOST LIKELY SECONDARY TO ETOH ABUSE, BUT MUST KEEP IN MIND THAT THE PATIENT HAS HAD HEPATITIS C AND LYMPHOMA PROBABLY IF THE ENZYMES DO NOT COME DOWN, THEN MAY HAVE TO WORK UP FOR THAT. ALSO SINCE ALKALINE PHOSPHATASE IS HIGH, WOULD RECOMMEND ULTRASOUND OF THE ABDOMEN. 9. HISTORY OF LUNG CANCER, CURED. 10. ANXIETY. 11. DEPRESSION. 12. BIPOLAR DISORDER. RECOMMENDATIONS: 1. Would hydrate the patient. 2. Would replenish the patient's potassium. 3. Would start the patient on antibiotics. 4. Add digoxin 0.25 mg IV push daily. 5. Would also recommend serial LFTs. 6. Consider hepatitis C workup to see if there is recurrence and also check an ultrasound of the abdomen to make sure that the patient has no recurrence of lymphoma. 7. Discussed with the patient and discussed with the hospitalist taking care of the patient. Would recommend continue Xopenex. Would hydrate the patient. Also, continue the patient's antibiotics. 8. Will stop the patient's DuoNeb and put him on Xopenex. 9. Continue Cardizem drip. 10. At present, it is not clear if the patient has hypertension, in which case the patient would have a CHADS 1 score and hence, until that is settled, would recommend starting the patient on Lovenox 55 mg subcutaneously every 12 hours, that is 1 mg/kg every 12 hours. TIME SPENT: Note, 45 minutes spent on the patient, more than 50% of the time spent on direct patient care. His medications were reviewed and medications alterations made. Will follow with you. DICTATING PHYSICIAN: DORIAN JIMÉNEZ M.D. [id number] Y#: [id number] ID: [id number] JOB#: [id number] ACCT: [id number] cc:DORIAN JIMÉNEZ M.D. >
[2016-12-20 05:14] LABS: ABSOLUTE EOSINOPHILS # (AUTO) 0.2 10^3/uL (0.0-0.6); ABSOLUTE LYMPHOCYTES (AUTO) 0.8 10^3/uL (0.5-4.7); ABSOLUTE MONOCYTES (AUTO) 0.5 10^3/uL (0.1-1.4); BASOPHILS % (AUTO) 0.3 % (0-2); EOSINOPHILS % (AUTO) 3.7 % (0-6); HEMATOCRIT 29.1 % (37.9-51.0); HEMOGLOBIN 9.9 g/dL (13.5-17.0); HGB HCT DIFFERENCE 0.6; LYMPHOCYTES % (AUTO) 12.6 % (13-45); MEAN CORPUSCULAR HEMOGLOBIN 30.4 pg (27.0-33.4); MEAN CORPUSCULAR HGB CONC 34.1 g/dL (32.0-36.0); MEAN CORPUSCULAR VOLUME 89 fl (80-97); MONOCYTES % (AUTO) 8.1 % (3-13); RED BLOOD COUNT 3.27 10^6/uL (4.35-5.55); SEGMENTED NEUTROPHILS % (AUTO) 75.3 % (42-78); WHITE BLOOD COUNT 6.6 10^3/uL (4.0-10.5)
[2016-12-20 05:38] LABS: BLOOD UREA NITROGEN 4 mg/dL (7-20); CALCIUM 8.5 mg/dL (8.4-10.2); CARBON DIOXIDE 38 mmol/L (22-30); CHLORIDE 94 mmol/L (98-107); CREATININE RESULT 0.45 mg/dL (0.52-1.25); GLUCOSE 82 mg/dL (75-110); POTASSIUM 3.2 mmol/L (3.6-5.0); SODIUM 136.4 mmol/L (137-145)
[2016-12-20 05:47] LABS: ANION GAP 4 (5-19)
[2016-12-20] MEDS: DILTIAZEM HCL/D5W 125 MG/125 ML RTUINJ IV PRN (06:47)
[2016-12-20] MEDS: POTASSI CL 20 MEQ/50 ML RIDER 20 MEQ/50 ML RTUPB IV SCH ×2 (08:04→09:54)
[2016-12-20] MEDS: MULTIVITAMIN TABLET PO SCH (09:49)
[2016-12-20] MEDS: THIAMINE HCL 100 MG TABLET PO SCH (09:49)
[2016-12-20] MEDS: FOLIC ACID 1 MG TABLET PO SCH (09:49)
[2016-12-20] MEDS: ENOXAPARIN SODIUM INJ 60 MG/0.6 ML DISP.SYRIN SUBCUT SCH ×2 (09:50→21:18)
--- NOTE | 2016-12-20 10:28 | PDOC PROGRESS REPORT ---
Subjective Progress Note for:: 12/20/16 Subjective:: Complains of some shortness of breath. Physical Exam Vital Signs: Temp Pulse Resp BP Pulse Ox 98.2 F 98 22 H 120/59 L 90 L 12/20/16 07:33 12/20/16 07:33 12/20/16 07:33 12/20/16 07:00 12/20/16 07:51 Intake & Output 12/19/16 12/20/16 12/21/16 06:59 06:59 06:59 Intake Total 60 2459 Output Total 600 3400 Balance -540 -941 Weight 56.1 kg General appearance: PRESENT: no acute distress Eye exam: PRESENT: conjunctiva pink. ABSENT: scleral icterus Mouth exam: PRESENT: moist, tongue midline Neck exam: ABSENT: JVD Respiratory exam: PRESENT: wheezes - Scattered expiratory wheezes. ABSENT: rales, rhonchi Cardiovascular exam: PRESENT: irregular rhythm. ABSENT: diastolic murmur, systolic murmur GI/Abdominal exam: PRESENT: normal bowel sounds, soft. ABSENT: distended, guarding, mass, organolmegaly, rebound, tenderness Extremities exam: ABSENT: calf tenderness, clubbing, pedal edema Neurological exam: PRESENT: alert, awake, oriented to person, oriented to place , oriented to time, oriented to situation, CN II-XII grossly intact. ABSENT: motor sensory deficit Psychiatric exam: PRESENT: appropriate affect Skin exam: PRESENT: dry, intact, warm. ABSENT: cyanosis, rash Results Laboratory Results: 12/20/16 03:49 12/20/16 03:49 12/20/16 12/20/16 03:49 03:49 WBC 6.6 RBC 3.27 L Hgb 9.9 L Hct 29.1 L MCV 89 MCH 30.4 MCHC 34.1 RDW 15.0 H Plt Count 142 L Seg Neutrophils % 75.3 Lymphocytes % 12.6 L Monocytes % 8.1 Eosinophils % 3.7 Basophils % 0.3 Absolute Neutrophils 5.0 Absolute Lymphocytes 0.8 Absolute Monocytes 0.5 Absolute Eosinophils 0.2 Absolute Basophils 0.0 Sodium 136.4 L Potassium 3.2 L Chloride 94 L Carbon Dioxide 38 H Anion Gap 4 L BUN 4 L Creatinine 0.45 L Est GFR ( Amer) > 60 Est GFR (Non-Af Amer) > 60 Glucose 82 Calcium 8.5 12/19/16 12/19/16 01:06 06:59 Troponin I 0.021 0.012 Impressions: Abdomen Ultrasound 12/19/16 00:00 IMPRESSION: 1. DISTENDED GALLBLADDER. SMALL AMOUNT OF SLUDGE. TRACE PERICHOLECYSTIC FLUID. 2. HEPATOMEGALY WITH DIFFUSE FATTY INFILTRATION. Assessment & Plan - Diagnosis (1) Atrial flutter with rapid ventricular response Is this a current diagnosis for this admission?: YesPlan: The patient continues to have a rapid ventricular rate. He is already currently on a diltiazem drip. Cardiology has been consulted. His cardiac enzymes have increased slightly. Patient has been seen by cardiology. The elevated cardiac enzymes are most likely secondary to the rapid ventricular response. (2) Elevated LFTs Is this a current diagnosis for this admission?: YesPlan: This most likely secondary to his chronic hepatitis C. (3) Left-sided chest wall pain Is this a current diagnosis for this admission?: YesPlan: Improved. (4) DOYLE (obstructive sleep apnea) Is this a current diagnosis for this admission?: YesPlan: Continue with CPAP daily at bedtime. (5) Hepatitis C Is this a current diagnosis for this admission?: Yes (6) COPD (chronic obstructive pulmonary disease) Is this a current diagnosis for this admission?: YesPlan: Patient was started on Rocephin yesterday. Will add on Solu-Medrol today. - Time Time Spent with patient: 25-34 minutes - Inpatient Certification Medical Necessity: Need Close Monitoring Due to Risk of Patient Decompensation, Need for IV Antibiotics
[2016-12-20 10:58] LABS: ALANINE AMINOTRANSFERASE 44 U/L (21-72); ALBUMIN 2.6 g/dL (3.5-5.0); ALKALINE PHOSPHATASE 158 U/L (38-126); ASPARTATE AMINO TRANSFERASE 81 U/L (17-59); BILIRUBIN,DIRECT 0.8 mg/dL (0.0-0.4); BILIRUBIN,TOTAL 1.6 mg/dL (0.2-1.3); TOTAL PROTEIN 5.4 g/dL (6.3-8.2)
[2016-12-20] MEDS ORDERED: MAGNESIUM SULFATE/D5W 1 GM/100 ML RTUPB IV ONE (11:00)
[2016-12-20] MEDS: OXYCODONE HCL IR 5 MG TABLET PO PRN ×2 (11:49→20:24)
[2016-12-20] MEDS: METHYLPREDNISOLONE INJ 40 MG/1 ML SDV IV SCH ×2 (11:50→18:53)
[2016-12-20] MEDS ORDERED: DILTIAZEM HCL 120 MG CAP.SR.24H PO ONE (12:00)
[2016-12-20] MEDS: CEFTRIAXONE 1 GM/D5W RTU 1 GM/50 ML RTUPB IV SCH (14:20)
[2016-12-20 15:46] LABS: APPEARANCE,URINE CLEAR; BILIRUBIN,URINE NEGATIVE (NEGATIVE); GLUCOSE, URINE NEGATIVE (NEGATIVE); KETONES,URINE NEGATIVE (NEGATIVE); LEUKOCYTE ESTERASE,URINE NEGATIVE (NEGATIVE); NITRITE,URINE NEGATIVE (NEGATIVE); PROTEIN,URINE NEGATIVE (NEGATIVE); URINE SPECIFIC GRAVITY 1.006
[2016-12-20] MEDS: DILTIAZEM HCL 120 MG CAP.SR.24H PO SCH (19:19)
[2016-12-21] MEDS: METHYLPREDNISOLONE INJ 40 MG/1 ML SDV IV SCH ×2 (03:35→09:50)
[2016-12-21 05:06] LABS: ABSOLUTE LYMPHOCYTES (AUTO) 0.3 10^3/uL (0.5-4.7); ABSOLUTE MONOCYTES (AUTO) 0.1 10^3/uL (0.1-1.4); BASOPHILS % (AUTO) 0.1 % (0-2); HEMATOCRIT 26.7 % (37.9-51.0); HEMOGLOBIN 9.2 g/dL (13.5-17.0); HGB HCT DIFFERENCE 0.9; LYMPHOCYTES % (AUTO) 6.1 % (13-45); MEAN CORPUSCULAR HEMOGLOBIN 30.7 pg (27.0-33.4); MEAN CORPUSCULAR HGB CONC 34.4 g/dL (32.0-36.0); MEAN CORPUSCULAR VOLUME 89 fl (80-97); MONOCYTES % (AUTO) 2.5 % (3-13); RED BLOOD COUNT 2.99 10^6/uL (4.35-5.55); RED CELL DISTRIBUTION WIDTH 15.3 % (11.5-14.0); SEGMENTED NEUTROPHILS % (AUTO) 91.3 % (42-78); WHITE BLOOD COUNT 5.5 10^3/uL (4.0-10.5)
[2016-12-21 05:30] LABS: ANION GAP 8 (5-19); BLOOD UREA NITROGEN 6 mg/dL (7-20); CALCIUM 8.3 mg/dL (8.4-10.2); CARBON DIOXIDE 35 mmol/L (22-30); CHLORIDE 93 mmol/L (98-107); CREATININE RESULT 0.45 mg/dL (0.52-1.25); GLUCOSE 141 mg/dL (75-110); POTASSIUM 3.9 mmol/L (3.6-5.0); SODIUM 135.9 mmol/L (137-145)
--- NOTE | 2016-12-21 05:38 | PROGRESS NOTE E ---
Progress Note NAME: CHITRA LUA : 1955 AGE: 61Y DATE: 12/20/2016 ROOM: 301 SUBJECTIVE: The patient states he feels much better. His heart rate is well controlled, but the patient now is in atypical atrial flutter with a controlled ventricular response. He denies any chest discomfort or discomfort. He still has some shortness of breath and he says he has some cough and is still bringing up some brownish yellow sputum. There is no fever. The patient does not feel any palpitations. There is some degree of orthopnea, but no leg edema. There is no bleeding on Lovenox. There are no TIA or CVA symptoms. OBJECTIVE: GENERAL: He is a thin-built, but seems to be well nourished at present, in no distress. VITAL SIGNS: The patient is afebrile with a temperature of 97.9 degrees Fahrenheit orally, pulse 73 beats per minute, blood pressure is 111/65, respirations are 20 per minute, O2 saturations are 100% on 4 L nasal cannula. HEENT: Head is atraumatic, normocephalic. Eyes: Pupils are equal, round and regular, reactive to light and accommodation. Extraocular movements are normal. There is no conjunctival pallor. There is no scleral icterus. ENT is negative. External auditory canals are clear. Nose: There is no deviated nasal septum. There is no inflammation of the nasal mucous membranes. Mouth: No ulcers in the mouth. No bleeding from the gum. NECK: Supple. There is no JVD. Carotids are equal. There is no bruit. There is no lymphadenopathy. Trachea is central. There is no goiter. LUNGS: Reveal diminished air entry and prolonged expiration with some scattered rhonchi bilaterally, but without any wheezing and no rales or CHF. HEART: There is no rub. ABDOMEN: Soft, nontender. There is no hepatosplenomegaly. Bowel sounds are well heard. There are no tender areas or masses. EXTREMITIES: Femorals are diminished. Leg pulses are diminished. There are no femoral bruits. There is no DVT or cellulitis. There is no calf tenderness. There is no cyanosis or clubbing. CENTRAL NERVOUS SYSTEM: The patient is conscious, awake, alert and oriented x3 with no focal deficits. PSYCHIATRIC: The patient's judgment and insight are intact. His affect is normal. LABORATORY: His white count is 6600, hemoglobin is 9.9, hematocrit 29.1, and his platelet count is 142,000. The patient's sodium is 136.4, potassium is 3.2, chloride is 94, and CO2 is 28. The patient's GFR is greater than 60. His liver function tests are still abnormal with an AST of 81, elevated total bilirubin of 1.6, direct bilirubin is 0.8. His ALT is normal at 44 and his alk phos is 158. Compared to his LFTs, this seems to be much improved. IMPRESSION: 1. SYNCOPE, SECONDARY TO ATRIAL FLUTTER WITH RAPID VENTRICULAR RESPONSE. No recurrence. 2. ATRIAL FLUTTER WITH CONTROLLED VENTRICULAR RESPONSE. 3. ACUTE BRONCHITIS, improving. 4. O2-DEPENDENT COPD. Doubt that this is an exacerbation of COPD. 5. HISTORY OF HEPATITIS C, treated with interferon *------*. 6. HISTORY OF LYMPHOMA. 7. HYPOKALEMIA. 8. ABNORMAL LIVER FUNCTION TEST. They are getting better. Whether this is secondary to EtOH abuse versus hepatitis C or versus lymphoma infiltration of the lung is yet to be determined. 9. HISTORY OF LUNG CANCER, cared by Surgery. 10. HISTORY OF ANXIETY, at present seems to be calm. 11. DEPRESSION. 12. BIPOLAR DISORDER, in remission. RECOMMENDATIONS: We will stop the patient's Cardizem drip and start the patient on Cardizem CD 120 mg p.o. q.12h. Replace the patient's potassium intravenously and since the patient's magnesium is borderline normal, I would also give him 8 mEq of magnesium sulfate. The patient shows classical atrial flutter, which could be amenable to ablative treatment. Note in view of this, I would recommend that we transition the patient to old anticoagulant and after taking 3 or 4 weeks, to have a sinocaval, isthmus ablation with flutter focus. This was discussed with the patient who is willing. He also understands that if the ablation is successful, he needs to be on anticoagulation for at least another 6 weeks more. All of this was discussed with the patient in detail. Note his medications reviewed, medications were adjusted and added and some stopped. TIME SPENT: Note 45 minutes spent with the patient, with more than 50% of the time spent on direct patient care. Discussed the case with the hospitalist also and with the patient. ADDENDUM: Also the nurses note that the patient's heart rate is controlled when he is lying still, but if he stands up, his heart rate shoots into 130s to 140s. This is most likely secondary probably due to dehydration. Hence, we will hydrate the patient. DICTATING PHYSICIAN: DORIAN JIMÉNEZ M.D. [id number] PHY#: [id number] ID: [id number] JOB#: [id number] ACCT: [id number] cc: >
[2016-12-21] MEDS: OXYCODONE HCL IR 5 MG TABLET PO PRN ×2 (07:17→17:59)
[2016-12-21] MEDS: THIAMINE HCL 100 MG TABLET PO SCH (09:49)
[2016-12-21] MEDS: MULTIVITAMIN TABLET PO SCH (09:49)
[2016-12-21] MEDS: FOLIC ACID 1 MG TABLET PO SCH (09:49)
[2016-12-21] MEDS: DILTIAZEM HCL 120 MG CAP.SR.24H PO SCH ×2 (09:49→21:10)
[2016-12-21] MEDS: ENOXAPARIN SODIUM INJ 60 MG/0.6 ML DISP.SYRIN SUBCUT SCH ×2 (09:50→21:11)
[2016-12-21 11:22] LABS: ALANINE AMINOTRANSFERASE 37 U/L (21-72); ALBUMIN 2.5 g/dL (3.5-5.0); ALKALINE PHOSPHATASE 137 U/L (38-126); ASPARTATE AMINO TRANSFERASE 59 U/L (17-59); BILIRUBIN,DIRECT 0.5 mg/dL (0.0-0.4); BILIRUBIN,TOTAL 0.7 mg/dL (0.2-1.3); TOTAL PROTEIN 5.5 g/dL (6.3-8.2)
[2016-12-21] MEDS: CEFTRIAXONE 1 GM/D5W RTU 1 GM/50 ML RTUPB IV SCH (11:48)
[2016-12-21] MEDS: NORMAL SALINE 1000 ML 1,000 ML IV PRN ×2 (11:48→22:32)
--- NOTE | 2016-12-21 11:56 | PDOC PROGRESS REPORT ---
Subjective Progress Note for:: 12/21/16 Subjective:: Complains of cough. Physical Exam Vital Signs: Temp Pulse Resp BP Pulse Ox 97.8 F 49 L 18 139/82 H 100 12/21/16 11:10 12/21/16 11:10 12/21/16 11:10 12/21/16 11:10 12/21/16 11:10 Intake & Output 12/20/16 12/21/16 12/22/16 06:59 06:59 06:59 Intake Total 2459 5158 Output Total 3400 8295 Balance -941 3233 Weight 56.1 kg 58 kg General appearance: PRESENT: no acute distress Eye exam: PRESENT: conjunctiva pink. ABSENT: scleral icterus Mouth exam: PRESENT: moist, tongue midline Neck exam: ABSENT: JVD Respiratory exam: PRESENT: rhonchi - Coarse rhonchi bilaterally.. ABSENT: rales , wheezes Cardiovascular exam: PRESENT: irregular rhythm. ABSENT: diastolic murmur, rubs , systolic murmur GI/Abdominal exam: PRESENT: normal bowel sounds, soft. ABSENT: distended, guarding, mass, organolmegaly, rebound, tenderness Extremities exam: ABSENT: calf tenderness, clubbing, pedal edema Neurological exam: PRESENT: alert, awake, oriented to person, oriented to place , oriented to time, oriented to situation, CN II-XII grossly intact. ABSENT: motor sensory deficit Psychiatric exam: PRESENT: appropriate affect Skin exam: PRESENT: dry, intact, warm. ABSENT: cyanosis, rash Results Laboratory Results: 12/21/16 03:49 12/21/16 03:49 12/20/16 12/21/16 12/21/16 12:25 03:44 03:49 WBC 5.5 RBC 2.99 L Hgb 9.2 L Hct 26.7 L MCV 89 MCH 30.7 MCHC 34.4 RDW 15.3 H Plt Count 167 Seg Neutrophils % 91.3 H Lymphocytes % 6.1 L Monocytes % 2.5 L Eosinophils % 0.0 Basophils % 0.1 Absolute Neutrophils 5.0 Absolute Lymphocytes 0.3 L Absolute Monocytes 0.1 Absolute Eosinophils 0.0 Absolute Basophils 0.0 Sodium Potassium Chloride Carbon Dioxide Anion Gap BUN Creatinine Est GFR ( Amer) Est GFR (Non-Af Amer) Glucose Calcium Total Bilirubin 0.7 AST 59 ALT 37 Alkaline Phosphatase 137 H Total Protein 5.5 L Albumin 2.5 L Urine Color YELLOW Urine Appearance CLEAR Urine pH 6.0 Ur Specific [place] 1.006 Urine Protein NEGATIVE Urine Glucose (UA) NEGATIVE Urine Ketones NEGATIVE Urine Blood NEGATIVE Urine Nitrite NEGATIVE Ur Leukocyte Esterase NEGATIVE Urine WBC (Auto) 0 Urine RBC (Auto) 0 12/21/16 03:49 WBC RBC Hgb Hct MCV MCH MCHC RDW Plt Count Seg Neutrophils % Lymphocytes % Monocytes % Eosinophils % Basophils % Absolute Neutrophils Absolute Lymphocytes Absolute Monocytes Absolute Eosinophils Absolute Basophils Sodium 135.9 L Potassium 3.9 Chloride 93 L Carbon Dioxide 35 H Anion Gap 8 BUN 6 L Creatinine 0.45 L Est GFR ( Amer) > 60 Est GFR (Non-Af Amer) > 60 Glucose 141 H Calcium 8.3 L Total Bilirubin AST ALT Alkaline Phosphatase Total Protein Albumin Urine Color Urine Appearance Urine pH Ur Specific [place] Urine Protein Urine Glucose (UA) Urine Ketones Urine Blood Urine Nitrite Ur Leukocyte Esterase Urine WBC (Auto) Urine RBC (Auto) 12/19/16 12/19/16 01:06 06:59 Troponin I 0.021 0.012 Impressions: Abdomen Ultrasound 12/19/16 00:00 IMPRESSION: 1. DISTENDED GALLBLADDER. SMALL AMOUNT OF SLUDGE. TRACE PERICHOLECYSTIC FLUID. 2. HEPATOMEGALY WITH DIFFUSE FATTY INFILTRATION. Assessment & Plan - Diagnosis (1) Atrial flutter with rapid ventricular response Is this a current diagnosis for this admission?: YesPlan: The patient has had improvement in his heart rate but he still becomes tachycardic when he stands up. Cardiology is following and we'll follow their recommendations. (2) Elevated LFTs Is this a current diagnosis for this admission?: YesPlan: Patient has had an ultrasound that shows gallstones but no obvious cholecystitis. (3) Left-sided chest wall pain Is this a current diagnosis for this admission?: YesPlan: Improved. (4) DOYLE (obstructive sleep apnea) Is this a current diagnosis for this admission?: YesPlan: Continue with CPAP daily at bedtime. (5) Hepatitis C Is this a current diagnosis for this admission?: Yes (6) COPD (chronic obstructive pulmonary disease) Is this a current diagnosis for this admission?: YesPlan: Continue with Rocephin and steroids. - Time Time Spent with patient: 25-34 minutes - Inpatient Certification Medical Necessity: Need Close Monitoring Due to Risk of Patient Decompensation
--- NOTE | 2016-12-21 21:18 | PROGRESS NOTE E ---
Progress Note NAME: CHITRA LUA : 1955 AGE: 61Y DATE: 12/21/2016 ROOM: 301 SUBJECTIVE: The patient states he is feels much better, but he still has some wheezing. He also has a cough that is productive of sputum, which is yellowish brown in color. He denies any chest pain or discomfort. There is no PND. There is some mild degree of orthopnea. There is no leg edema. There is no chest pain or discomfort. There is no palpitations. There is no hemoptysis. There is no TIA or CVA symptoms. There is no bleeding on Lovenox. Note that the patient had an ultrasound of the abdomen that showed an enlarged liver, but was *------* fatty infiltration. No masses or nodules seen. OBJECTIVE: GENERAL: The patient is in no acute distress. He is afebrile. VITAL SIGNS: Temperature is 97.6 degrees Fahrenheit, pulse is anywhere from 114 to 78 to 80 beats/minute. When the patient stands up the heart rate tends less to go up and goes up into the teens rather into the 140's and 150's, suggestive that the patient is being rehydrated and still needs some more rehydration. His blood pressure is 120/61, respirations are 16 per minute, O2 sats are 94% on 3L nasal cannula. GENERAL: He is thin built, but seems to be well-nourished at present and in no acute distress. HEENT: Normocephalic, atraumatic. Eyes: Pupils are equal, round, and reactive to light and accommodation. Extraocular movements are normal. There is no conjunctival pallor. There is no scleral icterus. ENT is negative. External auditory canals are clear. There is no deviated nasal septum. There is no inflammation of nasal mucous membranes. No ulcers in the mouth. No bleeding from the gums. NECK: Supple. There is no JVD. Carotids are equal. There is no bruit. There is no lymphadenopathy. Trachea is central. There is no goiter. LUNGS: Diminished air entry and prolonged expiration with some scattered rhonchi bilaterally with also some faint wheezing. No rales or CHF. HEART: S1 and S2 is heard. There is no S3 gallop. There is no S4 gallop. There is systolic murmur at the left sternal border of the apex. There is no rub. ABDOMEN: Soft, nontender. There is no hepatosplenomegaly. Bowel sounds are well heard. There are no tender area or masses. EXTREMITIES: Femorals are diminished. There are no femoral bruits. Leg pulses are diminished. There is no DVT or cellulitis. There is no calf tenderness. CENTRAL NERVOUS SYSTEM: The patient is conscious, awake, alert and oriented x3 with no focal deficits. PSYCHIATRIC: The patient's judgment and insight are intact. His affect is normal. LABORATORY DATA: The patient's white count is 5500, hemoglobin 9.2, hematocrit is 26.7, platelet count is 167,000. The patient's sodium is 135.9, potassium 3.9, chloride 93, CO2 is 35. The patient's BUN was 6 and creatinine 0.45. GFR is greater than 60. The patient's glucose is 141. The patient's calcium is 8.3. IMPRESSION: 1. SYNCOPE SECONDARY TO ATRIAL FLUTTER WITH RAPID VENTRICULAR RESPONSE AND NO RECURRENCE AT PRESENT. 2. ATRIAL FIBRILLATION WITH BETTER CONTROLLED VENTRICULAR RESPONSE. 3. ACUTE BRONCHITIS, IMPROVING. 4. O2 DEPENDENT COPD. 5. HISTORY OF HEPATITIS B TREATED WITH INTERFERON FOR 1 YEAR. 6. HISTORY OF LYMPHOMA. 7. HYPOKALEMIA, RESOLVED AFTER REPLENISHMENT AND POTASSIUM NOW NORMAL. 8. HISTORY OF LUNG CANCER CURED BY SURGERY. 9. HISTORY OF ANXIETY, AT PRESENT SEEMS TO BE CALM. 10. DEPRESSION. 11. BIPOLAR DISORDER IN REMISSION. RECOMMENDATIONS: We will continue the patient's Cardizem CD 120 mg p.o. q.12 h. Continue hydration. We will recheck in the a.m. and see if we can stop the patient's Lovenox and start the patient on Eliquis 2.5 mg b.i.d. for at least 6 weeks *------* having atrial flutter/ablation. This has been discussed with the patient. The patient also knows that he should not be drinking alcohol when he is on Eliquis, especially with the liver function. I want to start the Eliquis when the liver function comes back to normal. Note 40 minutes spent on the patient with more than 50% of the time spent on direct patient care and also discussion, review of the patient's medications. Also lab tests ordered in the form of LFTs. Also discussed with the hospitalist taking care of the patient. The patient's ultrasound of the abdomen has been discussed with him. We will follow with you. DICTATING PHYSICIAN: DORIAN JIMÉNEZ M.D. [id number] PHY#: [id number] ID: [id number] JOB#: [id number] ACCT: [id number] cc: >
[2016-12-22 04:33] LABS: HEMATOCRIT 26.5 % (37.9-51.0); HEMOGLOBIN 9.2 g/dL (13.5-17.0); HGB HCT DIFFERENCE 1.1; MEAN CORPUSCULAR HEMOGLOBIN 30.8 pg (27.0-33.4); MEAN CORPUSCULAR HGB CONC 34.7 g/dL (32.0-36.0); MEAN CORPUSCULAR VOLUME 89 fl (80-97); RED BLOOD COUNT 2.98 10^6/uL (4.35-5.55); WHITE BLOOD COUNT 10.9 10^3/uL (4.0-10.5)
[2016-12-22 05:01] LABS: ALANINE AMINOTRANSFERASE 38 U/L (21-72); ALBUMIN 2.6 g/dL (3.5-5.0); ALKALINE PHOSPHATASE 127 U/L (38-126); ANION GAP 5 (5-19); ASPARTATE AMINO TRANSFERASE 59 U/L (17-59); BILIRUBIN,DIRECT 0.5 mg/dL (0.0-0.4); BILIRUBIN,TOTAL 0.6 mg/dL (0.2-1.3); BLOOD UREA NITROGEN 6 mg/dL (7-20); CALCIUM 8.5 mg/dL (8.4-10.2); CARBON DIOXIDE 39 mmol/L (22-30); CHLORIDE 93 mmol/L (98-107); CREATININE RESULT 0.43 mg/dL (0.52-1.25); GLUCOSE 85 mg/dL (75-110); TOTAL PROTEIN 5.6 g/dL (6.3-8.2)
[2016-12-22] MEDS: THIAMINE HCL 100 MG TABLET PO SCH (09:01)
[2016-12-22] MEDS: MULTIVITAMIN TABLET PO SCH (09:02)
[2016-12-22] MEDS: FOLIC ACID 1 MG TABLET PO SCH (09:04)
[2016-12-22] MEDS: OXYCODONE HCL IR 5 MG TABLET PO PRN (09:05)
[2016-12-22] MEDS: ENOXAPARIN SODIUM INJ 60 MG/0.6 ML DISP.SYRIN SUBCUT SCH (09:05)
[2016-12-22] MEDS: LEVALBUTEROL HCL NEB 0.63 MG/3 ML AMPUL NEB PRN ×2 (09:21→14:19)
[2016-12-22] MEDS ORDERED: PREDNISONE 20 MG TABLET PO SCH (10:00)
[2016-12-22] MEDS ORDERED: DILTIAZEM HCL 180 MG CAPSULE.CR PO SCH (10:00)
[2016-12-22] MEDS ORDERED: DILTIAZEM HCL 120 MG CAP.SR.24H PO SCH (10:00)
[2016-12-22] MEDS ORDERED: APIXABAN 2.5 MG TABLET PO ONE (11:00)
[2016-12-22 12:10] LABS: APPEARANCE,URINE CLEAR; BILIRUBIN,URINE NEGATIVE (NEGATIVE); GLUCOSE, URINE NEGATIVE (NEGATIVE); KETONES,URINE NEGATIVE (NEGATIVE); LEUKOCYTE ESTERASE,URINE NEGATIVE (NEGATIVE); NITRITE,URINE NEGATIVE (NEGATIVE); PROTEIN,URINE NEGATIVE (NEGATIVE); URINE SPECIFIC GRAVITY 1.003; UROBILINOGEN,URINE NEGATIVE mg/dL (<2.0)
[2016-12-22] MEDS: CEFTRIAXONE 1 GM/D5W RTU 1 GM/50 ML RTUPB IV SCH (13:28)
[2016-12-22 15:36] VITALS: BP 130/64
--- NOTE | 2016-12-22 16:30 | PDOC DISCHARGE SUMMARY ---
General - Admit/Disc Date/PCP Admission Date/Primary Care Provider: 12/19/16 00:40 Discharge Date: 12/22/16 - Discharge Diagnosis (1) Atrial flutter with rapid ventricular response Is this a current diagnosis for this admission?: YesSummary: he is rate controlled with diltiazem. Patient has been started on Eliquis and coagulation (2) Elevated LFTs Is this a current diagnosis for this admission?: YesSummary: She is noted to have gallbladder with sludge (3) Left-sided chest wall pain Is this a current diagnosis for this admission?: Yes (4) DOYLE (obstructive sleep apnea) Is this a current diagnosis for this admission?: Yes (5) Hepatitis C Is this a current diagnosis for this admission?: Yes (6) COPD (chronic obstructive pulmonary disease) Is this a current diagnosis for this admission?: Yes - Additional Information Resuscitation Status: Full Code Discharge Diet: Cardiac Discharge Activity: Activity As Tolerated Home Medications: Albuterol Sulfate [Proair Respiclick] 1 puff IH Q6HP PRN 12/19/16 Baclofen [Baclofen 10 mg Tablet] 10 mg PO QID 12/19/16 Buspirone HCl [Buspar 5 mg Tablet] 1 tab PO TID 12/19/16 Fluoxetine HCl [Prozac] 40 mg PO DAILY 12/19/16 Lamotrigine [Lamictal] 200 mg PO Q12 12/19/16 Lorazepam [Ativan 1 mg Tablet] 1 mg PO Q4 PRN 12/19/16 Olanzapine [Zyprexa 5 mg Tablet] 10 mg PO QHS 12/19/16 Umeclidinium [place] [Incruse Ellipta] 1 puff IH DAILY 12/19/16 Apixaban [Eliquis 2.5 mg Tablet] 2.5 mg PO BID #60 tablet 12/22/16 Diltiazem HCl [Diltiazem 24Hr Cd] 180 mg PO DAILY #30 cap.er.24h 12/22/16 Multivitamin [Tab-A-Xavier (Multiple Vitamin) Tablet] 1 tab PO DAILY tablet 12/22 Nicotine [Nicoderm 14 mg/24 Hr Transdermal Patch] 1 each TD DAILYP PRN patch.td24 12/22/16 Prednisone [Deltasone 20 mg Tablet] 10 mg PO DAILY #21 tablet 12/22/16 Thiamine HCl [Thiamine 100 mg Tablet] 100 mg PO DAILY tablet 12/22/16 History of Present Illness History of Present Illness: CHITRA LUA is a 61 year old male with a history of oxygen dependent COPD who normally wears 3 L per nasal cannula who presented with tachycardia. He also had some left-sided chest wall pain. Patient was found to have atrial flutter and is admitted for rate control. Hospital Course Hospital Course: 61 old gentleman who presented with tachycardia and was found to have atrial flutter. Patient had an acute COPD exacerbation which was the probable exacerbation of his atrial flutter. Patient was put on diltiazem drip and eventually was converted over to by mouth diltiazem with rate control. The patient also was started on Eliquis. The patient's acute COPD exacerbation was treated initially with Rocephin and IV steroids however the antibiotics were not continued as there did not appear to be an infectious component to this. Patient also was noted have elevated liver enzymes. An abdominal ultrasound was done and he's noted to have gallbladder sludge. He's not had any abdominal pain with this. He does have a history of hepatitis C in the past also. His respiratory status was back to his baseline on the day of discharge and was felt that he was stable for discharge to home. Physical Exam Vital Signs: Temp Pulse Resp BP Pulse Ox 97.8 F 89 18 130/64 H 95 12/22/16 15:34 12/22/16 15:34 12/22/16 15:34 12/22/16 15:34 12/22/16 16:04 Intake & Output 12/21/16 12/22/16 12/23/16 06:59 06:59 06:59 Intake Total 0838 4946 946 Output Total 1925 1500 Balance 3233 3446 946 Weight 58 kg 59.3 kg General appearance: PRESENT: no acute distress Eye exam: PRESENT: conjunctiva pink. ABSENT: scleral icterus Mouth exam: PRESENT: moist, tongue midline Neck exam: ABSENT: carotid bruit, JVD, lymphadenopathy, thyromegaly Respiratory exam: PRESENT: clear to auscultation [place]. ABSENT: rales, rhonchi, wheezes Cardiovascular exam: PRESENT: irregular rhythm. ABSENT: diastolic murmur, rubs , systolic murmur GI/Abdominal exam: PRESENT: normal bowel sounds, soft. ABSENT: distended, guarding, mass, organolmegaly, rebound, tenderness Extremities exam: ABSENT: calf tenderness, clubbing, pedal edema Neurological exam: PRESENT: alert, awake, oriented to person, oriented to place , oriented to time, oriented to situation, CN II-XII grossly intact. ABSENT: motor sensory deficit Psychiatric exam: PRESENT: appropriate affect Skin exam: PRESENT: dry, intact, warm. ABSENT: cyanosis, rash Results Laboratory Results: 12/22/16 03:42 12/22/16 03:42 12/22/16 12/22/16 12/22/16 03:42 03:42 09:00 WBC 10.9 H RBC 2.98 L Hgb 9.2 L Hct 26.5 L MCV 89 MCH 30.8 MCHC 34.7 RDW 15.0 H Plt Count 210 Sodium 137.0 Potassium 4.0 Chloride 93 L Carbon Dioxide 39 H Anion Gap 5 BUN 6 L Creatinine 0.43 L Est GFR ( Amer) > 60 Est GFR (Non-Af Amer) > 60 Glucose 85 Calcium 8.5 Total Bilirubin 0.6 AST 59 ALT 38 Alkaline Phosphatase 127 H Total Protein 5.6 L Albumin 2.6 L Urine Color STRAW Urine Appearance CLEAR Urine pH 8.0 Ur Specific [place] 1.003 Urine Protein NEGATIVE Urine Glucose (UA) NEGATIVE Urine Ketones NEGATIVE Urine Blood NEGATIVE Urine Nitrite NEGATIVE Ur Leukocyte Esterase NEGATIVE Stool Occult Blood 12/22/16 09:15 WBC RBC Hgb Hct MCV MCH MCHC RDW Plt Count Sodium Potassium Chloride Carbon Dioxide Anion Gap BUN Creatinine Est GFR ( Amer) Est GFR (Non-Af Amer) Glucose Calcium Total Bilirubin AST ALT Alkaline Phosphatase Total Protein Albumin Urine Color Urine Appearance Urine pH Ur Specific [place] Urine Protein Urine Glucose (UA) Urine Ketones Urine Blood Urine Nitrite Ur Leukocyte Esterase Stool Occult Blood NEGATIVE 12/19/16 12/19/16 01:06 06:59 Troponin I 0.021 0.012 Impressions: Abdomen Ultrasound 12/19/16 00:00 IMPRESSION: 1. DISTENDED GALLBLADDER. SMALL AMOUNT OF SLUDGE. TRACE PERICHOLECYSTIC FLUID. 2. HEPATOMEGALY WITH DIFFUSE FATTY INFILTRATION. Qualifiers PATEINT BEING DISCHARGED WITH ANY OF THE FOLLOWING DIAGNOSIS?: No Plan Discharge Plan: Patient is discharged home in stable condition. Will follow up with primary care in 2 weeks. Time Spent: Greater than 30 Minutes
[2016-12-22] MEDS ORDERED: APIXABAN 2.5 MG TABLET PO SCH (18:00)
== END 2016-12-22 18:10 | disposition home or self-care (01) | DRG 309 ==
LOC: ER 15:28 → UNDOADMIN 22:23 → EH 22:23 → 3N 12-19 02:33 → EH 12-19 02:33
PROVIDERS: ADMIT Family Medicine; ATTEND Family Medicine
DX: I48.4 Atypical atrial flutter (principal); Z68.1 Body mass index [BMI] 19.9 or less, adult; J44.0 Chronic obstructive pulmonary disease with (acute) lower respiratory infection; J44.1 Chronic obstructive pulmonary disease with (acute) exacerbation; J20.9 Acute bronchitis, unspecified; I10 Essential (primary) hypertension; E87.6 Hypokalemia; R07.89 Other chest pain; R55 Syncope and collapse; F10.10 Alcohol abuse, uncomplicated; B18.2 Chronic viral hepatitis C; F31.9 Bipolar disorder, unspecified; G47.33 Obstructive sleep apnea (adult) (pediatric); F17.210 Nicotine dependence, cigarettes, uncomplicated; Y90.9 Presence of alcohol in blood, level not specified; Z99.81 Dependence on supplemental oxygen; Z91.19 Patient's noncompliance with other medical treatment and regimen; Z79.01 Long term (current) use of anticoagulants; Z79.899 Other long term (current) drug therapy; Z72.89 Other problems related to lifestyle; Z85.118 Personal history of other malignant neoplasm of bronchus and lung
CPT/HCPCS: 36415; 70450; 71010; 71275; 76700; 80048; 80053; 80061; 80076; 80307; 81001; 82272; 82550; 83735; 84439; 84443; 84484; 85025; 85027; 85610; 85730; 87040; 93005; 93010; 93306; 94640; 94799; 96374; 96375; 96376; 99284; 99291; J0696; J1160; J1650; J2060; J2270; J2405; J2920; J3475; J3480; J3490; J7030; J7512; J7614